=== PATIENT | female | born 1935 ===

== ENCOUNTER 2018-03-25 18:19 | Inpatient (IN) ==
[2018-03-25] MEDS ORDERED: PIPERACILLIN/TAZOBACTAM 3,375 MG in SODIUM CHLORIDE 0.9% 100 ML IV STA ×2 (18:55→19:32)
[2018-03-25] MEDS ORDERED: VANCOMYCIN INJ 750 MG in SODIUM CHLORIDE 0.9% 250 ML IV STA (18:55)
[2018-03-25 19:16] LABS: Basophils % 0.3 % (0.0-0.8); Eosinophils # 0.1 10*3/uL (0.0-0.87); Hematocrit 26.7 VOL% (35.7-47.0); Hemoglobin 8.7 GM/DL (12.0-16.0); Immature Granulocytes % 0.6 %; Immature Granulocytes Absolute 0.05 #; Lymphocytes # 0.7 10*3/uL (1.4-4.0); Lymphocytes % 8.2 % (21.3-54.2); Mean Corpuscular HGB Conc 32.6 GM/DL (32-36); Mean Corpuscular Hemoglobin 32 PG (27-34); Mean Corpuscular Volume 97.4 FL (87-102); Mean Platelet Volume 9.7 FL (9.6-12.0); Monocytes # 0.7 10*3/uL (0.11-0.8); Neutrophils # 7.4 10*3/uL (1.4-7.4); Neutrophils % 81.9 % (38.7-73.9); Platelet Count 122 T/CUMM (130-400); Red Blood Count 2.74 MC/CUMM (3.8-5.5); Red Cell Distribution Width 16.5 % (9.3-17.3)
[2018-03-25 19:20] LABS: INR 1.2; PT Patient Result 12.1 SECS
[2018-03-25 19:27] LABS: Albumin 3.1 G/DL (3.4-5.0); Bilirubin,Total 0.5 MG/DL (0.2-1.0); Calcium 8.1 MG/DL (8.5-10.1); Osmolality,Calculated 280.5 MOS/KG (273-304); Total Protein 6.8 G/DL (6.4-8.3)
[2018-03-25 19:29] LABS: Lactic Acid 0.7 MMOL/L (0.4-2.0)
[2018-03-25 20:21] LABS: ABG PCO2 48.6 MM HG (35-48); ABG PH 7.452 (7.35-7.45); ABG PO2 53.5 MM HG (80-95); Allen Test Positive
[2018-03-25 20:22] LABS: ABG Base Excess 8.8 MMOL/L (-2.5-2.5); ABG HCO3 32.4 MMOL/L (20-26); ABG Oxygen Saturation 85.3 % (95-100); ABG TCO2 31.4 MMOL/L (23-27)
[2018-03-25 21:43] LABS: Apearance,Urine Slightly Hazy (Clear); Bacteria,Urine Occasional /HPF (Few); Bilirubin,Urine Negative (Negative); Blood, Urine Negative (Negative); Glucose,Urine (UA) 150 mg/dL (Negative); Ketones,Urine Negative (Negative); Nitrite,Urine Negative (Negative); Protein,Urine >=500 MG/DL; RBC,Urine 3 /HPF (0-4); Squamous Epithelial Cell,Urine Occasional /HPF (0-10); Urine Color Yellow (Yellow); Urine Specific Gravity 1.013 (1.001-1.035); Urine Urobilinogen < 2.0 EU/DL (0.2-1.0); WBC,Urine 102 /HPF (0-6)
[2018-03-25] MEDS ORDERED: FUROSEMIDE 40 MG/4 ML VIAL IV ONE (23:30)
[2018-03-25] MEDS ORDERED: PROMETHAZINE 25 MG/1 ML VIAL IM PRN (23:35)
[2018-03-25] MEDS ORDERED: ALUMINUM/MAGNES/SIMETH MAX STR 30 ML UDCUP PO PRN (23:35)
[2018-03-25] MEDS ORDERED: ONDANSETRON 4 MG/2 ML VIAL IV PRN (23:35)
[2018-03-25] MEDS ORDERED: ACETAMINOPHEN 325 MG TABLET PO PRN (23:35)
[2018-03-25] MEDS ORDERED: DEXTROSE 50% 25 GM/50 ML VIAL IV PRN (23:35)
[2018-03-25] MEDS ORDERED: GLUCAGON 1 MG VIAL IM PRN (23:35)
[2018-03-25] MEDS: INSULIN REGULAR 100 UNIT/ML SUBCUT SCH (23:58)
[2018-03-26] MEDS: GABAPENTIN 100 MG CAPSULE PO SCH ×3 (00:01→22:19)
[2018-03-26 05:00] LABS: ABG Base Excess 7.5 MMOL/L (-2.5-2.5); ABG HCO3 31.3 MMOL/L (20-26); ABG Oxygen Saturation 94.7 % (95-100); ABG PCO2 46.1 MM HG (35-48); ABG PH 7.455 (7.35-7.45); ABG PO2 93.9 MM HG (80-95); ABG TCO2 29.8 MMOL/L (23-27); Allen Test Positive
[2018-03-26] MEDS: INSULIN REGULAR 100 UNIT/ML SUBCUT SCH ×3 (05:37→18:45)
[2018-03-26] MEDS ORDERED: LEVOFLOXACIN INJ 750 MG in PREMIX 1 EACH IV ONE (08:00)
[2018-03-26 08:19] LABS: Risk Ratio 1.98; VLDL CHOLESTEROL 13.6 MG/DL
[2018-03-26] MEDS: DOCUSATE SODIUM 100 MG CAPSULE PO SCH ×2 (08:58→22:19)
[2018-03-26] MEDS: CALCIUM (CARBONATE) 500 MG TABLET PO SCH ×3 (08:58→17:50)
[2018-03-26] MEDS: PANTOPRAZOLE 40 MG TABLET PO SCH (08:58)
[2018-03-26] MEDS: CARVEDILOL 12.5 MG TABLET PO SCH ×2 (08:58→22:20)
[2018-03-26] MEDS ORDERED: ERGOCALCIFEROL 50,000 UNIT CAPSULE PO SCH (09:00)
[2018-03-26] MEDS ORDERED: FUROSEMIDE 40 MG/4 ML VIAL IV SCH (09:00)
[2018-03-26] MEDS ORDERED: ENOXAPARIN 30 MG/0.3 ML SYRINGE SUBCUT SCH (09:00)
[2018-03-26] MEDS ORDERED: POTASSIUM CHLORIDE 20 MEQ TABLET PO ONE (13:53)
[2018-03-26] MEDS ORDERED: SIMVASTATIN 20 MG TABLET PO SCH (21:00)
[2018-03-27 05:54] LABS: Calcium 7.8 MG/DL (8.5-10.1); Osmolality,Calculated 283.1 MOS/KG (273-304); Potassium 4.5 MMOL/L (3.5-5.1)
[2018-03-27] MEDS: INSULIN REGULAR 100 UNIT/ML SUBCUT SCH ×2 (06:30→13:35)
[2018-03-27] MEDS: CARVEDILOL 12.5 MG TABLET PO SCH ×2 (07:43→10:44)
[2018-03-27] MEDS: PANTOPRAZOLE 40 MG TABLET PO SCH ×2 (07:43→10:45)
[2018-03-27] MEDS: CALCIUM (CARBONATE) 500 MG TABLET PO SCH ×2 (07:43→13:12)
[2018-03-27] MEDS: GABAPENTIN 100 MG CAPSULE PO SCH ×2 (07:43→10:44)
[2018-03-27] MEDS: DOCUSATE SODIUM 100 MG CAPSULE PO SCH ×2 (07:44→10:44)
[2018-03-27 13:14] VITALS: BP 115/45
[2018-03-28] MEDS ORDERED: LEVOFLOXACIN INJ 500 MG in PREMIX 1 EACH IV SCH (08:00)
[2018-03-29] MEDS ORDERED: cloNIDine 0.1 MG/24 HR PATCH TRANSDERM SCH (09:00)
== END 2018-03-27 14:32 | DRG 640 ==
LOC: EDBD → EDUNIT# → N.ED 18:19 → N.EDINP 22:28 → N.5E 23:33
PROVIDERS: ADMIT Family Medicine; ATTEND Family Medicine

== ENCOUNTER 2019-09-07 16:10 | Inpatient (IN) ==
[2019-09-07 17:08] LABS: Basophils % 0.2 % (0.0-0.8); Eosinophils % 0.1 % (0.00-10.9); Hematocrit 30.4 VOL% (35.7-47.0); Immature Granulocytes % 0.6 %; Immature Granulocytes Absolute 0.07 #; Lymphocytes # 0.5 10*3/uL (1.4-4.0); Lymphocytes % 4.4 % (21.3-54.2); Mean Corpuscular HGB Conc 32.9 GM/DL (32-36); Mean Corpuscular Volume 101.7 FL (87-102); Mean Platelet Volume 12.8 FL (9.6-12.0); Monocytes % 4.2 % (1.7-12.7); Neutrophils % 90.5 % (38.7-73.9); Platelet Count 58 T/CUMM (130-400); Red Blood Count 2.99 MC/CUMM (3.8-5.5); Red Cell Distribution Width 14.9 % (9.3-17.3); White Blood Count 11.5 T/CUMM (4-12)
[2019-09-07 17:31] LABS: Albumin 3.2 G/DL (3.4-5.0); Bilirubin,Total 0.7 MG/DL (0.2-1.0); Calcium 8.2 MG/DL (8.5-10.1); Osmolality,Calculated 282.3 MOS/KG (273-304); Total Protein 7.8 G/DL (6.4-8.3)
[2019-09-07 17:43] LABS: Hypochromasia 2+
[2019-09-07 17:44] LABS: Microcytosis 1+; Platelet Estimate Decreased; Polychromasia Few
[2019-09-07] MEDS ORDERED: ONDANSETRON 4 MG/2 ML VIAL IV PRN (19:06)
[2019-09-07] MEDS ORDERED: VANCOMYCIN INJ 500 MG in SODIUM CHLORIDE 0.9% 100 ML IV PRN (19:37)
[2019-09-07] MEDS ORDERED: NITROGLYCERIN SL 0.4 MG TABLET SL PRN (19:39)
[2019-09-07] MEDS: PIPERACILLIN/TAZOBACTAM 3,375 MG in SODIUM CHLORIDE 0.9% 100 ML IV SCH (21:57)
[2019-09-07] MEDS: DICYCLOMINE 10 MG CAPSULE PO SCH (22:01)
[2019-09-07] MEDS: DOCUSATE/SENNA 50-8.6 MG TABLET PO SCH (22:01)
[2019-09-07] MEDS: carvediloL 12.5 MG TABLET PO SCH (22:01)
[2019-09-07] MEDS: HEPARIN 5,000 UNIT/1 ML VIAL SUBCUT SCH (22:02)
[2019-09-08] MEDS ORDERED: VANCOMYCIN INJ 1,000 MG in SODIUM CHLORIDE 0.9% 250 ML IV ONE (01:00)
[2019-09-08] MEDS: LEVOFLOXACIN INJ 500 MG in PREMIX 1 EACH IV SCH (01:37)
[2019-09-08] MEDS: HEPARIN 5,000 UNIT/1 ML VIAL SUBCUT SCH ×3 (05:24→21:36)
[2019-09-08 05:31] LABS: Basophils % 0.2 % (0.0-0.8); Eosinophils % 0.3 % (0.00-10.9); Hematocrit 28.9 VOL% (35.7-47.0); Hemoglobin 9.5 GM/DL (12.0-16.0); Immature Granulocytes % 0.5 %; Immature Granulocytes Absolute 0.04 #; Lymphocytes # 0.8 10*3/uL (1.4-4.0); Mean Corpuscular HGB Conc 32.9 GM/DL (32-36); Mean Corpuscular Volume 102.8 FL (87-102); Mean Platelet Volume 12.5 FL (9.6-12.0); Monocytes % 4.4 % (1.7-12.7); Neutrophils % 85.6 % (38.7-73.9); Platelet Count 47 T/CUMM (130-400); Red Blood Count 2.81 MC/CUMM (3.8-5.5); Red Cell Distribution Width 14.8 % (9.3-17.3); White Blood Count 8.8 T/CUMM (4-12)
[2019-09-08 06:02] LABS: Calcium 8.3 MG/DL (8.5-10.1); Osmolality,Calculated 275.8 MOS/KG (273-304)
[2019-09-08 06:03] LABS: Hypochromasia 1+; Ovalocytes Slight
[2019-09-08 06:04] LABS: Microcytosis Slight; Platelet Estimate Decreased
[2019-09-08] MEDS: PIPERACILLIN/TAZOBACTAM 3,375 MG in SODIUM CHLORIDE 0.9% 100 ML IV SCH ×2 (09:49→23:23)
[2019-09-08] MEDS: PANTOPRAZOLE 40 MG TABLET PO SCH (09:50)
[2019-09-08] MEDS: carvediloL 12.5 MG TABLET PO SCH ×2 (09:50→21:36)
[2019-09-08] MEDS: DICYCLOMINE 10 MG CAPSULE PO SCH ×3 (09:50→21:36)
[2019-09-08] MEDS: DOCUSATE/SENNA 50-8.6 MG TABLET PO SCH ×2 (09:50→21:36)
[2019-09-09 05:25] LABS: Basophils % 0.4 % (0.0-0.8); Eosinophils # 0.1 10*3/uL (0.0-0.87); Eosinophils % 0.9 % (0.00-10.9); Hematocrit 27.4 VOL% (35.7-47.0); Hemoglobin 8.8 GM/DL (12.0-16.0); Immature Granulocytes % 0.7 %; Immature Granulocytes Absolute 0.05 #; Lymphocytes # 0.8 10*3/uL (1.4-4.0); Lymphocytes % 11.2 % (21.3-54.2); Mean Corpuscular HGB Conc 32.1 GM/DL (32-36); Mean Platelet Volume 11.8 FL (9.6-12.0); Monocytes % 6.8 % (1.7-12.7); Red Blood Count 2.66 MC/CUMM (3.8-5.5); Red Cell Distribution Width 14.8 % (9.3-17.3)
[2019-09-09 05:31] LABS: Platelet Count 46 T/CUMM (130-400)
[2019-09-09] MEDS: HEPARIN 5,000 UNIT/1 ML VIAL SUBCUT SCH ×3 (05:42→22:41)
[2019-09-09 05:49] LABS: Hypochromasia 1+
[2019-09-09 05:50] LABS: Microcytosis 1+; Ovalocytes Slight
[2019-09-09 05:51] LABS: Platelet Estimate Decreased
[2019-09-09 05:52] LABS: Calcium 8.1 MG/DL (8.5-10.1); Osmolality,Calculated 287.4 MOS/KG (273-304)
[2019-09-09] MEDS: PANTOPRAZOLE 40 MG TABLET PO SCH (09:05)
[2019-09-09] MEDS: carvediloL 12.5 MG TABLET PO SCH ×2 (09:05→20:11)
[2019-09-09] MEDS: DICYCLOMINE 10 MG CAPSULE PO SCH ×3 (09:05→20:10)
[2019-09-09] MEDS: DOCUSATE/SENNA 50-8.6 MG TABLET PO SCH ×2 (09:05→20:10)
[2019-09-09] MEDS: ALBUTEROL/IPRATROPIUM 3 ML NEB RESP TX SCH ×2 (13:30→19:58)
[2019-09-09] MEDS: PIPERACILLIN/TAZOBACTAM 3,375 MG in SODIUM CHLORIDE 0.9% 100 ML IV SCH ×2 (13:59→22:37)
[2019-09-09] MEDS ORDERED: VANCOMYCIN INJ 500 MG in SODIUM CHLORIDE 0.9% 100 ML IV ONE (17:00)
[2019-09-09 17:50] LABS: Glucose,Pleural Fluid 115 MG/DL; LDH,Body Fluid 82 U/L; Total Protein,Body Fluid 3.3 G/DL
[2019-09-09 18:29] LABS: Lymphocytes,Pleural Fluid 35 %; Monocytes,Pleural Fluid 2 %; Neutrophils,Pleural Fluid 63 %; RBC,Pleural Fluid 13646 T/CUMM
[2019-09-10] MEDS: ALBUTEROL/IPRATROPIUM 3 ML NEB RESP TX SCH ×4 (00:38→20:14)
[2019-09-10] MEDS: LEVOFLOXACIN INJ 500 MG in PREMIX 1 EACH IV SCH (03:30)
[2019-09-10 06:10] LABS: Basophils % 0.5 % (0.0-0.8); Eosinophils % 0.6 % (0.00-10.9); Hematocrit 28.2 VOL% (35.7-47.0); Hemoglobin 8.9 GM/DL (12.0-16.0); Immature Granulocytes % 0.8 %; Immature Granulocytes Absolute 0.05 #; Lymphocytes # 0.6 10*3/uL (1.4-4.0); Lymphocytes % 9.5 % (21.3-54.2); Mean Corpuscular HGB Conc 31.6 GM/DL (32-36); Mean Corpuscular Volume 104.4 FL (87-102); Mean Platelet Volume 12.2 FL (9.6-12.0); Monocytes % 7.3 % (1.7-12.7); Neutrophils % 81.3 % (38.7-73.9); Red Cell Distribution Width 14.6 % (9.3-17.3); White Blood Count 6.4 T/CUMM (4-12)
[2019-09-10 06:12] LABS: Platelet Count 56 T/CUMM (130-400)
[2019-09-10] MEDS: HEPARIN 5,000 UNIT/1 ML VIAL SUBCUT SCH ×3 (06:28→21:20)
[2019-09-10 06:31] LABS: Calcium 8.1 MG/DL (8.5-10.1); Osmolality,Calculated 278.8 MOS/KG (273-304)
[2019-09-10 06:33] LABS: Platelet Estimate Decreased; Polychromasia Few
[2019-09-10] MEDS: carvediloL 12.5 MG TABLET PO SCH ×2 (09:51→21:20)
[2019-09-10] MEDS: PANTOPRAZOLE 40 MG TABLET PO SCH (09:51)
[2019-09-10] MEDS: DOCUSATE/SENNA 50-8.6 MG TABLET PO SCH ×2 (09:51→21:20)
[2019-09-10] MEDS: DICYCLOMINE 10 MG CAPSULE PO SCH ×3 (09:51→21:20)
[2019-09-10] MEDS: PIPERACILLIN/TAZOBACTAM 3,375 MG in SODIUM CHLORIDE 0.9% 100 ML IV SCH ×2 (11:25→23:52)
[2019-09-11] MEDS: ALBUTEROL/IPRATROPIUM 3 ML NEB RESP TX SCH ×4 (00:42→19:55)
[2019-09-11 05:13] LABS: Basophils % 0.4 % (0.0-0.8); Eosinophils # 0.1 10*3/uL (0.0-0.87); Eosinophils % 1.8 % (0.00-10.9); Hematocrit 27.4 VOL% (35.7-47.0); Hemoglobin 8.9 GM/DL (12.0-16.0); Immature Granulocytes Absolute 0.05 #; Lymphocytes # 0.9 10*3/uL (1.4-4.0); Lymphocytes % 17.4 % (21.3-54.2); Mean Corpuscular HGB Conc 32.5 GM/DL (32-36); Mean Corpuscular Volume 101.9 FL (87-102); Mean Platelet Volume 11.2 FL (9.6-12.0); Monocytes % 10.2 % (1.7-12.7); Neutrophils % 69.2 % (38.7-73.9); Red Blood Count 2.69 MC/CUMM (3.8-5.5); Red Cell Distribution Width 14.6 % (9.3-17.3); White Blood Count 5.1 T/CUMM (4-12)
[2019-09-11 05:14] LABS: Platelet Count 72 T/CUMM (130-400)
[2019-09-11 05:35] LABS: Calcium 8.3 MG/DL (8.5-10.1); Osmolality,Calculated 282.7 MOS/KG (273-304)
[2019-09-11 05:37] LABS: Platelet Estimate Decreased; Polychromasia Few
[2019-09-11] MEDS: HEPARIN 5,000 UNIT/1 ML VIAL SUBCUT SCH ×3 (05:43→21:06)
[2019-09-11] MEDS: DICYCLOMINE 10 MG CAPSULE PO SCH ×3 (08:37→21:10)
[2019-09-11] MEDS: carvediloL 12.5 MG TABLET PO SCH ×2 (08:37→21:10)
[2019-09-11] MEDS: PANTOPRAZOLE 40 MG TABLET PO SCH (08:38)
[2019-09-11] MEDS: DOCUSATE/SENNA 50-8.6 MG TABLET PO SCH ×2 (08:38→21:10)
[2019-09-11] MEDS: PIPERACILLIN/TAZOBACTAM 3,375 MG in SODIUM CHLORIDE 0.9% 100 ML IV SCH ×2 (12:32→22:58)
[2019-09-12] MEDS: ALBUTEROL/IPRATROPIUM 3 ML NEB RESP TX SCH ×4 (00:39→19:58)
[2019-09-12] MEDS: LEVOFLOXACIN INJ 500 MG in PREMIX 1 EACH IV SCH (03:20)
[2019-09-12 05:27] LABS: Basophils % 0.4 % (0.0-0.8); Eosinophils % 2.3 % (0.00-10.9); Hematocrit 26.7 VOL% (35.7-47.0); Hemoglobin 8.7 GM/DL (12.0-16.0); Immature Granulocytes % 1.1 %; Lymphocytes % 14.8 % (21.3-54.2); Mean Corpuscular HGB Conc 32.6 GM/DL (32-36); Mean Corpuscular Volume 101.9 FL (87-102); Mean Platelet Volume 11.4 FL (9.6-12.0); Monocytes % 11.2 % (1.7-12.7); Neutrophils % 70.2 % (38.7-73.9); Red Blood Count 2.62 MC/CUMM (3.8-5.5); Red Cell Distribution Width 14.6 % (9.3-17.3); White Blood Count 4.7 T/CUMM (4-12)
[2019-09-12 05:28] LABS: Eosinophils # 0.1 10*3/uL (0.0-0.87); Immature Granulocytes Absolute 0.05 #; Lymphocytes # 0.7 10*3/uL (1.4-4.0); Platelet Count 73 T/CUMM (130-400)
[2019-09-12 05:44] LABS: Osmolality,Calculated 288.8 MOS/KG (273-304)
[2019-09-12 05:49] LABS: Hypochromasia 1+; Platelet Estimate Decreased
[2019-09-12] MEDS: HEPARIN 5,000 UNIT/1 ML VIAL SUBCUT SCH ×3 (06:12→22:04)
[2019-09-12] MEDS: DOCUSATE/SENNA 50-8.6 MG TABLET PO SCH ×2 (08:48→22:03)
[2019-09-12] MEDS: DICYCLOMINE 10 MG CAPSULE PO SCH ×3 (08:48→22:03)
[2019-09-12] MEDS: carvediloL 12.5 MG TABLET PO SCH ×2 (08:48→22:03)
[2019-09-12] MEDS: PANTOPRAZOLE 40 MG TABLET PO SCH (08:48)
[2019-09-12] MEDS: PIPERACILLIN/TAZOBACTAM 3,375 MG in SODIUM CHLORIDE 0.9% 100 ML IV SCH ×2 (11:34→22:04)
[2019-09-13] MEDS: ALBUTEROL/IPRATROPIUM 3 ML NEB RESP TX SCH ×3 (00:13→13:32)
[2019-09-13] MEDS: HEPARIN 5,000 UNIT/1 ML VIAL SUBCUT SCH ×2 (06:28→14:43)
[2019-09-13] MEDS: PANTOPRAZOLE 40 MG TABLET PO SCH ×2 (10:16→11:11)
[2019-09-13] MEDS: DOCUSATE/SENNA 50-8.6 MG TABLET PO SCH ×2 (10:16→11:11)
[2019-09-13] MEDS: carvediloL 12.5 MG TABLET PO SCH ×2 (10:16→11:10)
[2019-09-13] MEDS: DICYCLOMINE 10 MG CAPSULE PO SCH ×3 (10:16→15:51)
[2019-09-13] MEDS: PIPERACILLIN/TAZOBACTAM 3,375 MG in SODIUM CHLORIDE 0.9% 100 ML IV SCH (11:00)
[2019-09-13 14:11] VITALS: BP 203/90
== END 2019-09-13 15:53 | DRG 291 ==
LOC: EDUNIT# → EDBD → N.ED 16:10 → N.EDINP 17:13 → SUATTDRO 17:13 → N.5E 18:28
PROVIDERS: ADMIT Hospitalist; ATTEND Internal Medicine

== ENCOUNTER 2019-12-21 15:42 | Inpatient (IN) ==
[2019-12-21] MEDS ORDERED: EPINEPHrine 1 MG/10 ML SYRINGE ONE (15:49)
[2019-12-21 16:30] LABS: Basophils % 0.4 % (0.0-0.8); Eosinophils % 0.4 % (0.00-10.9); Hematocrit 30.8 VOL% (35.7-47.0); Hemoglobin 9.8 GM/DL (12.0-16.0); Immature Granulocytes % 0.4 %; Immature Granulocytes Absolute 0.02 #; Lymphocytes # 0.8 10*3/uL (1.4-4.0); Lymphocytes % 15.5 % (21.3-54.2); Mean Corpuscular HGB Conc 31.8 GM/DL (32-36); Mean Platelet Volume 11.5 FL (9.6-12.0); Monocytes % 7.8 % (1.7-12.7); Neutrophils % 75.5 % (38.7-73.9); Red Blood Count 3.11 MC/CUMM (3.8-5.5); Red Cell Distribution Width 14.7 % (9.3-17.3); White Blood Count 5.4 T/CUMM (4-12)
[2019-12-21 16:31] LABS: Platelet Count 74 T/CUMM (130-400)
[2019-12-21] MEDS ORDERED: EPINEPHrine 1 MG/10 ML SYRINGE IV STA (16:40)
[2019-12-21 16:49] LABS: Elliptocytes Few
[2019-12-21 16:50] LABS: Anisocytosis 1+; Platelet Estimate Decreased
[2019-12-21 16:54] LABS: Albumin 3.3 G/DL (3.4-5.0); Bilirubin,Total 0.5 MG/DL (0.2-1.0); Calcium 7.9 MG/DL (8.5-10.1); Osmolality,Calculated 292.7 MOS/KG (273-304); Total Protein 7.6 G/DL (6.4-8.3)
[2019-12-21] MEDS ORDERED: LIDOCAINE 1% 20 ML VIAL ONE (17:07)
[2019-12-21] MEDS ORDERED: ALBUTEROL 2.5 MG/3 ML NEB RESP TX PRN (18:24)
[2019-12-21] MEDS ORDERED: GLUCAGON 1 MG VIAL IM PRN ×2 (18:24→18:43)
[2019-12-21] MEDS ORDERED: DEXTROSE 50% 25 GM/50 ML VIAL IV PRN (18:24)
[2019-12-21] MEDS ORDERED: ONDANSETRON 4 MG/2 ML VIAL IV PRN (18:24)
[2019-12-21] MEDS: PANTOPRAZOLE 40 MG VIAL IV SCH (19:00)
[2019-12-21 19:11] LABS: Troponin I < 0.015 NG/ML (0.00-0.045)
[2019-12-21] MEDS ORDERED: SODIUM CHLORIDE 0.9% 150 ML IV SCH (21:00)
[2019-12-21] MEDS ORDERED: SODIUM BICARB INJ 50 MEQ, DEXTROSE 50% 25 GM, INSULIN REGULAR 10 UNIT in SODIUM CHLORID... IV ONE (22:00)
[2019-12-21] MEDS: INSULIN REGULAR 100 UNIT/ML SUBCUT SCH (23:58)
[2019-12-22] MEDS: DEXTROSE 10% 250 ML BAG IV PRN ×2 (02:34→05:54)
[2019-12-22 04:55] LABS: Basophils % 0.2 % (0.0-0.8); Eosinophils % 0.2 % (0.00-10.9); Hematocrit 27.8 VOL% (35.7-47.0); Hemoglobin 8.8 GM/DL (12.0-16.0); Immature Granulocytes % 0.5 %; Immature Granulocytes Absolute 0.03 #; Lymphocytes # 0.4 10*3/uL (1.4-4.0); Lymphocytes % 5.9 % (21.3-54.2); Mean Corpuscular HGB Conc 31.7 GM/DL (32-36); Mean Corpuscular Volume 99.3 FL (87-102); Mean Platelet Volume 11.7 FL (9.6-12.0); Monocytes % 8.5 % (1.7-12.7); Neutrophils % 84.7 % (38.7-73.9); Red Cell Distribution Width 14.6 % (9.3-17.3); White Blood Count 6.1 T/CUMM (4-12)
[2019-12-22 04:59] LABS: Platelet Count 62 T/CUMM (130-400)
[2019-12-22 05:22] LABS: Hypochromasia 1+; Ovalocytes Slight; Platelet Estimate Decreased
[2019-12-22 05:23] LABS: Albumin 3.4 G/DL (3.4-5.0); Bilirubin,Total 0.5 MG/DL (0.2-1.0); Calcium 7.6 MG/DL (8.5-10.1); Osmolality,Calculated 292.4 MOS/KG (273-304); Total Protein 7.2 G/DL (6.4-8.3)
[2019-12-22 05:27] LABS: Troponin I 0.017 NG/ML (0.00-0.045)
[2019-12-22] MEDS: INSULIN REGULAR 100 UNIT/ML SUBCUT SCH ×4 (07:49→20:46)
[2019-12-22 10:34] LABS: Troponin I 0.016 NG/ML (0.00-0.045)
[2019-12-22] MEDS: hydrALAZINE 20 MG/1 ML VIAL IV PRN ×2 (15:21→20:55)
[2019-12-22] MEDS ORDERED: amLODIPine 5 MG TABLET PO ONE (17:24)
[2019-12-22] MEDS: SEVELAMER CARBONATE 800 MG TABLET PO SCH (17:52)
[2019-12-22] MEDS: PANTOPRAZOLE 40 MG VIAL IV SCH (17:52)
[2019-12-22] MEDS: SIMVASTATIN 20 MG TABLET PO SCH (20:46)
[2019-12-22] MEDS: NIFEdipine 10 MG CAPSULE PO PRN (21:55)
[2019-12-23] MEDS: NIFEdipine 10 MG CAPSULE PO PRN (07:10)
[2019-12-23] MEDS ORDERED: MEGESTROL 400 MG/10 ML UDCUP PO SCH (08:00)
[2019-12-23] MEDS: INSULIN REGULAR 100 UNIT/ML SUBCUT SCH ×4 (08:19→20:12)
[2019-12-23] MEDS: DOCUSATE/SENNA 50-8.6 MG TABLET PO SCH (09:12)
[2019-12-23] MEDS: SEVELAMER CARBONATE 800 MG TABLET PO SCH ×3 (09:12→17:08)
[2019-12-23] MEDS: HEPARIN 5,000 UNIT/1 ML VIAL SUBCUT SCH ×2 (11:30→17:08)
[2019-12-23] MEDS ORDERED: hydrALAZINE 20 MG/1 ML VIAL IV PRN (16:08)
[2019-12-23] MEDS: PANTOPRAZOLE 40 MG VIAL IV SCH (17:33)
[2019-12-23] MEDS: SIMVASTATIN 20 MG TABLET PO SCH (20:59)
[2019-12-24] MEDS: HEPARIN 5,000 UNIT/1 ML VIAL SUBCUT SCH ×2 (02:25→10:16)
[2019-12-24 05:03] LABS: Basophils % 0.3 % (0.0-0.8); Eosinophils # 0.1 10*3/uL (0.0-0.87); Eosinophils % 0.8 % (0.00-10.9); Hematocrit 29.5 VOL% (35.7-47.0); Hemoglobin 9.4 GM/DL (12.0-16.0); Immature Granulocytes % 0.3 %; Immature Granulocytes Absolute 0.02 #; Lymphocytes # 0.6 10*3/uL (1.4-4.0); Lymphocytes % 9.1 % (21.3-54.2); Mean Corpuscular HGB Conc 31.9 GM/DL (32-36); Mean Corpuscular Volume 98.7 FL (87-102); Mean Platelet Volume 11.3 FL (9.6-12.0); Monocytes % 7.4 % (1.7-12.7); Neutrophils % 82.1 % (38.7-73.9); Platelet Count 75 T/CUMM (130-400); Red Blood Count 2.99 MC/CUMM (3.8-5.5); Red Cell Distribution Width 14.8 % (9.3-17.3); White Blood Count 6.6 T/CUMM (4-12)
[2019-12-24 05:33] LABS: Calcium 7.8 MG/DL (8.5-10.1); Osmolality,Calculated 270.4 MOS/KG (273-304)
[2019-12-24] MEDS: DOCUSATE/SENNA 50-8.6 MG TABLET PO SCH (09:12)
[2019-12-24] MEDS: INSULIN REGULAR 100 UNIT/ML SUBCUT SCH ×2 (09:12→12:28)
[2019-12-24] MEDS: SEVELAMER CARBONATE 800 MG TABLET PO SCH ×2 (09:13→12:29)
[2019-12-24 12:22] VITALS: BP 138/70
== END 2019-12-24 15:50 | disposition home or self-care (01) | DRG 308 ==
LOC: EDBD → EDUNIT# → EDSEX → N.ED 15:42 → N.CC 16:45 → SUATTDRO 16:59 → N.EDINP 16:59 → N.CC 17:19 → N.TELES 12-23 16:03
PROVIDERS: ADMIT Emergency Medicine; ATTEND Internal Medicine

== ENCOUNTER 2020-04-06 12:06 | Inpatient (IN) ==
[2020-04-06] MEDS ORDERED: NON-FORMULARY MEDICATION (Nitroglycerin [Nitroglycerin] 0.4 MG) SL PRN (13:01)
[2020-04-06] MEDS ORDERED: ACETAMINOPHEN 325 MG TABLET PO PRN ×2 (13:01→13:03)
[2020-04-06] MEDS ORDERED: ONDANSETRON 4 MG/2 ML VIAL IV PRN (13:03)
[2020-04-06] MEDS ORDERED: DEXTROSE 50% 25 GM/50 ML VIAL IV PRN (13:03)
[2020-04-06] MEDS ORDERED: LACTULOSE 20 GM/30 ML UDCUP PO PRN (13:03)
[2020-04-06] MEDS ORDERED: ZALEPLON 5 MG CAPSULE PO PRN (13:03)
[2020-04-06] MEDS ORDERED: BISACODYL 5 MG TABLET PO PRN (13:03)
[2020-04-06] MEDS ORDERED: diphenhydrAMINE CAP 25 MG CAPSULE PO PRN (13:03)
[2020-04-06] MEDS ORDERED: ALUMINUM/MAGNES/SIMETH MAX STR 30 ML UDCUP PO PRN (13:03)
[2020-04-06] MEDS ORDERED: GLUCAGON 1 MG VIAL IM PRN (13:03)
[2020-04-06] MEDS ORDERED: hydrALAZINE 20 MG/1 ML VIAL IV PRN (13:03)
[2020-04-06] MEDS ORDERED: guaiFENesin/DM ER 600-30 MG TABLET PO PRN (13:03)
[2020-04-06] MEDS ORDERED: DOCUSATE SODIUM 100 MG CAPSULE PO PRN (13:03)
[2020-04-06] MEDS ORDERED: SIMETHICONE CHEW 125 MG TABLET PO PRN (13:03)
[2020-04-06] MEDS ORDERED: VANCOMYCIN INJ 500 MG in SODIUM CHLORIDE 0.9% 250 ML IV PRN (17:00)
[2020-04-06] MEDS ORDERED: VANCOMYCIN INJ 1,250 MG in SODIUM CHLORIDE 0.9% 250 ML IV ONE (18:00)
[2020-04-06] MEDS: SEVELAMER CARBONATE 800 MG TABLET PO SCH (18:43)
[2020-04-06] MEDS: DICYCLOMINE 10 MG CAPSULE PO SCH ×2 (18:43→20:40)
[2020-04-06] MEDS: ALBUTEROL/IPRATROPIUM 3 ML NEB RESP TX SCH (20:17)
[2020-04-06] MEDS: cefTRIAXone 1,000 MG in SYRINGE 1 EACH IV SCH (20:40)
[2020-04-06] MEDS: GABAPENTIN 100 MG CAPSULE PO SCH (20:40)
[2020-04-06] MEDS: SIMVASTATIN 20 MG TABLET PO SCH (20:41)
[2020-04-06] MEDS: FERROUS SULFATE 325 MG TABLET PO SCH (20:41)
[2020-04-06] MEDS ORDERED: LOPERAMIDE 2 MG CAPSULE PO PRN (21:00)
[2020-04-06] MEDS: AZITHROMYCIN INJ 250 MG in SODIUM CHLORIDE 0.9% 250 ML IV SCH (22:30)
[2020-04-06] MEDS: CARBOXYMETHYLCELLULOSE 1% OPH SOLN BOTH EYES SCH (22:38)
[2020-04-07] MEDS: ALBUTEROL/IPRATROPIUM 3 ML NEB RESP TX SCH ×4 (00:20→19:43)
[2020-04-07 05:23] LABS: Basophils % 0.3 % (0.0-0.8); Eosinophils % 0.3 % (0.00-10.9); Hematocrit 35.2 VOL% (35.7-47.0); Immature Granulocytes % 0.3 %; Immature Granulocytes Absolute 0.02 #; Lymphocytes # 0.6 10*3/uL (1.4-4.0); Lymphocytes % 9.2 % (21.3-54.2); Mean Corpuscular HGB Conc 31.3 GM/DL (32-36); Mean Corpuscular Volume 100.3 FL (87-102); Mean Platelet Volume 10.2 FL (9.6-12.0); Monocytes % 9.5 % (1.7-12.7); Neutrophils % 80.4 % (38.7-73.9); Red Blood Count 3.51 MC/CUMM (3.8-5.5); Red Cell Distribution Width 15.3 % (9.3-17.3); White Blood Count 6.1 T/CUMM (4-12)
[2020-04-07 05:33] LABS: Platelet Count 99 T/CUMM (130-400)
[2020-04-07 05:48] LABS: Anisocytosis 1+; Hypochromasia 1+; Ovalocytes Few; Platelet Estimate Decreased
[2020-04-07 06:06] LABS: Albumin 3.3 G/DL (3.4-5.0); Bilirubin,Total 1.1 MG/DL (0.2-1.0); Calcium 8.5 MG/DL (8.5-10.1); Osmolality,Calculated 270.2 MOS/KG (273-304); Risk Ratio 1.97; Thyroid Stimulating Hormone 63.2 uIU/ml (0.358-3.74); Total Protein 8.2 G/DL (6.4-8.3); VLDL CHOLESTEROL 13.6 MG/DL
[2020-04-07] MEDS: SEVELAMER CARBONATE 800 MG TABLET PO SCH ×3 (09:33→16:59)
[2020-04-07] MEDS: DICYCLOMINE 10 MG CAPSULE PO SCH ×3 (09:42→21:48)
[2020-04-07] MEDS: PANTOPRAZOLE 40 MG TABLET PO SCH (09:42)
[2020-04-07] MEDS ORDERED: BUPIVACAINE MPF 0.25% 30 ML VIAL ONE (13:48)
[2020-04-07] MEDS ORDERED: LIDOCAINE 1%/EPI INJ 20 ML VIAL ONE (13:48)
[2020-04-07] MEDS: GABAPENTIN 100 MG CAPSULE PO SCH ×2 (14:28→21:48)
[2020-04-07] MEDS: CARBOXYMETHYLCELLULOSE 1% OPH SOLN BOTH EYES SCH ×3 (14:29→22:05)
[2020-04-07] MEDS: FERROUS SULFATE 325 MG TABLET PO SCH ×2 (14:30→21:49)
[2020-04-07] MEDS ORDERED: LIDOCAINE 2% 5 ML VIAL ONE (14:45)
[2020-04-07] MEDS ORDERED: SODIUM CHLORIDE 0.9% 250 ML IV ONE (14:45)
[2020-04-07] MEDS ORDERED: propofoL 200 MG/20 ML VIAL IV ONE (14:45)
[2020-04-07] MEDS: MEGESTROL 400 MG/10 ML UDCUP PO SCH (16:59)
[2020-04-07] MEDS: DOCUSATE/SENNA 50-8.6 MG TABLET PO SCH (16:59)
[2020-04-07] MEDS: cefTRIAXone 1,000 MG in SYRINGE 1 EACH IV SCH (21:47)
[2020-04-07] MEDS: SIMVASTATIN 20 MG TABLET PO SCH (21:48)
[2020-04-07] MEDS: DOXAZOSIN 1 MG TABLET PO SCH (21:48)
[2020-04-07] MEDS: AZITHROMYCIN INJ 250 MG in SODIUM CHLORIDE 0.9% 250 ML IV SCH (21:49)
[2020-04-08] MEDS: ALBUTEROL/IPRATROPIUM 3 ML NEB RESP TX SCH ×4 (01:30→19:37)
[2020-04-08 06:01] LABS: Basophils % 0.4 % (0.0-0.8); Eosinophils % 0.6 % (0.00-10.9); Hematocrit 32.1 VOL% (35.7-47.0); Hemoglobin 9.9 GM/DL (12.0-16.0); Immature Granulocytes % 0.4 %; Immature Granulocytes Absolute 0.02 #; Lymphocytes # 0.5 10*3/uL (1.4-4.0); Lymphocytes % 9.6 % (21.3-54.2); Mean Corpuscular HGB Conc 30.8 GM/DL (32-36); Mean Corpuscular Volume 101.3 FL (87-102); Mean Platelet Volume 10.8 FL (9.6-12.0); Monocytes % 9.6 % (1.7-12.7); Neutrophils % 79.4 % (38.7-73.9); Red Blood Count 3.17 MC/CUMM (3.8-5.5); Red Cell Distribution Width 15.5 % (9.3-17.3)
[2020-04-08 06:02] LABS: Platelet Count 91 T/CUMM (130-400)
[2020-04-08 06:19] LABS: Alanine Aminotransferase < 9 U/L (13-56); Albumin 2.9 G/DL (3.4-5.0); Alkaline Phosphatase 107 U/L (45-117); Aspartate Amino Transferase 12 U/L (0-37); Blood Urea Nitrogen 34 MG/DL (7-18); Calcium 7.7 MG/DL (8.5-10.1); Estimated Glom Filtration Rate 8 ML/MIN; Glucose 129 MG/DL (74-106); Total Protein 7.2 G/DL (6.4-8.3)
[2020-04-08 07:02] LABS: Hypochromasia 1+; Macrocytosis Slight
[2020-04-08 07:03] LABS: Platelet Estimate Decreased
[2020-04-08] MEDS: DOCUSATE/SENNA 50-8.6 MG TABLET PO SCH (09:47)
[2020-04-08] MEDS: MEGESTROL 400 MG/10 ML UDCUP PO SCH (09:47)
[2020-04-08] MEDS: CARBOXYMETHYLCELLULOSE 1% OPH SOLN BOTH EYES SCH ×4 (09:48→21:16)
[2020-04-08] MEDS: DICYCLOMINE 10 MG CAPSULE PO SCH ×3 (09:48→21:17)
[2020-04-08] MEDS: GABAPENTIN 100 MG CAPSULE PO SCH ×2 (09:48→21:17)
[2020-04-08] MEDS: FERROUS SULFATE 325 MG TABLET PO SCH ×2 (09:48→21:17)
[2020-04-08] MEDS: SEVELAMER CARBONATE 800 MG TABLET PO SCH ×3 (09:48→16:01)
[2020-04-08] MEDS: PANTOPRAZOLE 40 MG TABLET PO SCH (09:48)
[2020-04-08] MEDS: AZITHROMYCIN INJ 250 MG in SODIUM CHLORIDE 0.9% 250 ML IV SCH (21:16)
[2020-04-08] MEDS: cefTRIAXone 1,000 MG in SYRINGE 1 EACH IV SCH (21:16)
[2020-04-08] MEDS: SIMVASTATIN 20 MG TABLET PO SCH (21:17)
[2020-04-08] MEDS: DOXAZOSIN 1 MG TABLET PO SCH (21:17)
[2020-04-09] MEDS: ALBUTEROL/IPRATROPIUM 3 ML NEB RESP TX SCH ×4 (02:46→19:50)
[2020-04-09 05:22] LABS: Basophils % 0.4 % (0.0-0.8); Eosinophils # 0.1 10*3/uL (0.0-0.87); Eosinophils % 1.2 % (0.00-10.9); Hemoglobin 9.6 GM/DL (12.0-16.0); Immature Granulocytes % 0.4 %; Immature Granulocytes Absolute 0.02 #; Lymphocytes # 0.6 10*3/uL (1.4-4.0); Lymphocytes % 9.6 % (21.3-54.2); Mean Corpuscular Volume 99.3 FL (87-102); Mean Platelet Volume 10.5 FL (9.6-12.0); Monocytes % 8.8 % (1.7-12.7); Neutrophils % 79.6 % (38.7-73.9); Red Blood Count 3.02 MC/CUMM (3.8-5.5); Red Cell Distribution Width 15.6 % (9.3-17.3); White Blood Count 5.7 T/CUMM (4-12)
[2020-04-09 05:26] LABS: INR 1.2; PT Patient Result 12.9 SECS (9.8-11.9)
[2020-04-09 05:29] LABS: Platelet Count 86 T/CUMM (130-400)
[2020-04-09 06:18] LABS: Hypochromasia 1+
[2020-04-09 06:19] LABS: Anisocytosis 1+; Macrocytosis 1+; Ovalocytes Slight; Platelet Estimate Decreased
[2020-04-09 06:28] LABS: Albumin 2.8 G/DL (3.4-5.0); Total Protein 7.1 G/DL (6.4-8.3)
[2020-04-09] MEDS: PANTOPRAZOLE 40 MG TABLET PO SCH ×2 (06:30→10:25)
[2020-04-09] MEDS: LEVOTHYROXINE 25 MCG TABLET PO SCH (06:31)
[2020-04-09 06:33] LABS: Folate 8.7 NG/ML (5.4-24.0)
[2020-04-09 06:40] LABS: % Iron Saturation 22.9 % (18-50); Alanine Aminotransferase < 6 U/L (13-56); Albumin 2.8 G/DL (3.4-5.0); Alkaline Phosphatase 107 U/L (45-117); Aspartate Amino Transferase 14 U/L (0-37); Blood Urea Nitrogen 40 MG/DL (7-18); Calcium 7.4 MG/DL (8.5-10.1); Estimated Glom Filtration Rate 6 ML/MIN; Ferritin 744.6 ng/ml (8-252); Glucose 91 MG/DL (74-106); Osmolality,Calculated 277.2 MOS/KG (273-304)
[2020-04-09 10:05] LABS: Total Protein,Body Fluid 4.5 G/DL
[2020-04-09] MEDS: MEGESTROL 400 MG/10 ML UDCUP PO SCH (10:21)
[2020-04-09] MEDS: SEVELAMER CARBONATE 800 MG TABLET PO SCH ×3 (10:21→17:50)
[2020-04-09] MEDS: DOCUSATE/SENNA 50-8.6 MG TABLET PO SCH (10:21)
[2020-04-09] MEDS: DICYCLOMINE 10 MG CAPSULE PO SCH ×3 (10:22→22:22)
[2020-04-09] MEDS: FERROUS SULFATE 325 MG TABLET PO SCH ×2 (10:22→22:22)
[2020-04-09] MEDS: GABAPENTIN 100 MG CAPSULE PO SCH ×2 (10:22→22:22)
[2020-04-09] MEDS: CARBOXYMETHYLCELLULOSE 1% OPH SOLN BOTH EYES SCH ×4 (10:25→22:22)
[2020-04-09] MEDS ORDERED: CLINDAMYCIN INJ 600 MG in PREMIX 1 EACH IV SCH (16:30)
[2020-04-09 17:36] LABS: RBC,Pleural Fluid < 1 T/CUMM
[2020-04-09 17:40] LABS: Lymphocytes,Pleural Fluid 59 %; Monocytes,Pleural Fluid 24 %; Neutrophils,Pleural Fluid 18 %
[2020-04-09] MEDS: cefTRIAXone 1,000 MG in SYRINGE 1 EACH IV SCH (22:21)
[2020-04-09] MEDS: CLINDAMYCIN INJ 600 MG in PREMIX 1 EACH IV SCH (22:21)
[2020-04-09] MEDS: SIMVASTATIN 20 MG TABLET PO SCH (22:22)
[2020-04-09] MEDS: DOXAZOSIN 1 MG TABLET PO SCH (22:22)
[2020-04-09] MEDS: AZITHROMYCIN INJ 250 MG in SODIUM CHLORIDE 0.9% 250 ML IV SCH (22:51)
[2020-04-10] MEDS: ALBUTEROL/IPRATROPIUM 3 ML NEB RESP TX SCH ×3 (00:10→13:32)
[2020-04-10 05:13] LABS: Basophils % 0.4 % (0.0-0.8); Eosinophils # 0.1 10*3/uL (0.0-0.87); Eosinophils % 0.9 % (0.00-10.9); Hematocrit 30.1 VOL% (35.7-47.0); Hemoglobin 9.6 GM/DL (12.0-16.0); Immature Granulocytes % 0.4 %; Immature Granulocytes Absolute 0.02 #; Lymphocytes # 0.4 10*3/uL (1.4-4.0); Lymphocytes % 6.9 % (21.3-54.2); Mean Corpuscular HGB Conc 31.9 GM/DL (32-36); Mean Platelet Volume 10.6 FL (9.6-12.0); Neutrophils % 82.4 % (38.7-73.9); Red Blood Count 3.01 MC/CUMM (3.8-5.5); Red Cell Distribution Width 15.9 % (9.3-17.3); White Blood Count 5.5 T/CUMM (4-12)
[2020-04-10 05:15] LABS: Platelet Count 80 T/CUMM (130-400)
[2020-04-10 05:30] LABS: Alanine Aminotransferase < 6 U/L (13-56); Albumin 2.7 G/DL (3.4-5.0); Alkaline Phosphatase 94 U/L (45-117); Aspartate Amino Transferase 8 U/L (0-37); Blood Urea Nitrogen 19 MG/DL (7-18); Calcium 7.7 MG/DL (8.5-10.1); Estimated Glom Filtration Rate 10 ML/MIN; Glucose 106 MG/DL (74-106); Osmolality,Calculated 271.1 MOS/KG (273-304)
[2020-04-10 05:33] LABS: Hypochromasia 1+; Macrocytosis Slight; Ovalocytes Slight; Platelet Estimate Decreased
[2020-04-10] MEDS: CLINDAMYCIN INJ 600 MG in PREMIX 1 EACH IV SCH ×2 (05:48→12:31)
[2020-04-10] MEDS: LEVOTHYROXINE 25 MCG TABLET PO SCH (06:29)
[2020-04-10] MEDS: GABAPENTIN 100 MG CAPSULE PO SCH (09:11)
[2020-04-10] MEDS: CARBOXYMETHYLCELLULOSE 1% OPH SOLN BOTH EYES SCH ×3 (09:11→17:11)
[2020-04-10] MEDS: MEGESTROL 400 MG/10 ML UDCUP PO SCH (09:11)
[2020-04-10] MEDS: DICYCLOMINE 10 MG CAPSULE PO SCH ×2 (09:11→16:08)
[2020-04-10] MEDS: PANTOPRAZOLE 40 MG TABLET PO SCH (09:11)
[2020-04-10] MEDS: DOCUSATE/SENNA 50-8.6 MG TABLET PO SCH (09:11)
[2020-04-10] MEDS: SEVELAMER CARBONATE 800 MG TABLET PO SCH ×3 (09:11→17:11)
[2020-04-10] MEDS: FERROUS SULFATE 325 MG TABLET PO SCH (09:12)
[2020-04-10 16:08] VITALS: BP 125/51
== END 2020-04-10 17:44 | DRG 291 ==
LOC: EDUNIT# → EDSEX → EDBD → N.EDINP 12:06 → N.ED 12:06 → N.TELES 14:50 → SUATTDRO 04-07 11:40
PROVIDERS: ADMIT Hospitalist; ATTEND Internal Medicine

== ENCOUNTER 2020-06-04 19:01 | Observation (INO) ==
[2020-06-04] MEDS ORDERED: GLUCAGON 1 MG VIAL IM PRN (21:59)
[2020-06-04] MEDS ORDERED: ONDANSETRON 4 MG/2 ML VIAL IV PRN (21:59)
[2020-06-04] MEDS: ENOXAPARIN 30 MG/0.3 ML SYRINGE SUBCUT SCH (22:50)
[2020-06-05] MEDS: INSULIN LISPRO 100 UNIT/ML SUBCUT SCH ×4 (00:13→17:51)
[2020-06-05] MEDS: DEXTROSE 50% 25 GM/50 ML VIAL IV PRN ×2 (00:14→10:45)
[2020-06-05 07:15] LABS: Basophils # 0.1 10*3/uL (0.0-0.2); Basophils % 0.2 % (0.0-0.8); Eosinophils % 0.1 % (0.00-10.9); Hematocrit 24.7 VOL% (35.7-47.0); Hemoglobin 7.7 GM/DL (12.0-16.0); Immature Granulocytes % 1.7 %; Immature Granulocytes Absolute 0.45 #; Lymphocytes # 0.6 10*3/uL (1.4-4.0); Lymphocytes % 2.4 % (21.3-54.2); Mean Corpuscular HGB Conc 31.2 GM/DL (32-36); Mean Corpuscular Volume 100.4 FL (87-102); Mean Platelet Volume 10.3 FL (9.6-12.0); Neutrophils % 90.6 % (38.7-73.9); Platelet Count 208 T/CUMM (130-400); Red Blood Count 2.46 MC/CUMM (3.8-5.5); Red Cell Distribution Width 14.6 % (9.3-17.3); White Blood Count 26.4 T/CUMM (4-12)
[2020-06-05 07:39] LABS: Band Neutrophils 9 % (0-10); Lymphocytes 1 % (20-55); Segmented Neutrophils 86 % (50-85); Total Cells Counted 100
[2020-06-05 07:40] LABS: Hypochromasia 1+; Macrocytosis Slight; Ovalocytes Slight; Platelet Estimate Normal
[2020-06-05 07:41] LABS: Calcium 8.3 MG/DL (8.5-10.1); Osmolality,Calculated 276.4 MOS/KG (273-304)
[2020-06-05] MEDS ORDERED: cefTRIAXone 1,000 MG in SODIUM CHLORIDE 0.9% 100 ML IV SCH (09:00)
[2020-06-05] MEDS: PIPERACILLIN/TAZOBACTAM 3,375 MG in SODIUM CHLORIDE 0.9% 100 ML IV SCH ×2 (09:20→20:15)
[2020-06-05] MEDS ORDERED: SODIUM CHLORIDE 0.9% 1,000 ML IV SCH (12:00)
[2020-06-05] MEDS: VANCOMYCIN 50 MG/ML 60 ML/BOTTLE PO SCH ×2 (17:13→22:17)
[2020-06-05] MEDS ORDERED: VANCOMYCIN 50 MG/ML 60 ML/BOTTLE NG SCH (18:00)
[2020-06-05] MEDS: AZITHROMYCIN INJ 500 MG in SODIUM CHLORIDE 0.9% 250 ML IV SCH (19:24)
[2020-06-05] MEDS ORDERED: VANCOMYCIN INJ 1,000 MG in SODIUM CHLORIDE 0.9% 250 ML IV ONE (21:00)
[2020-06-05] MEDS: SIMVASTATIN 20 MG TABLET PO SCH (21:16)
[2020-06-05] MEDS: FERROUS SULFATE 325 MG TABLET PO SCH (21:16)
[2020-06-05] MEDS: ENOXAPARIN 30 MG/0.3 ML SYRINGE SUBCUT SCH (22:16)
[2020-06-06] MEDS: INSULIN LISPRO 100 UNIT/ML SUBCUT SCH ×4 (02:57→17:16)
[2020-06-06] MEDS: VANCOMYCIN 50 MG/ML 60 ML/BOTTLE PO SCH ×4 (04:16→22:34)
[2020-06-06 05:47] LABS: Basophils % 0.2 % (0.0-0.8); Eosinophils % 0.1 % (0.00-10.9); Hematocrit 23.8 VOL% (35.7-47.0); Hemoglobin 7.2 GM/DL (12.0-16.0); Immature Granulocytes Absolute 0.43 #; Lymphocytes # 0.4 10*3/uL (1.4-4.0); Mean Corpuscular HGB Conc 30.3 GM/DL (32-36); Monocytes % 3.1 % (1.7-12.7); Neutrophils % 92.6 % (38.7-73.9); Platelet Count 181 T/CUMM (130-400); Red Blood Count 2.31 MC/CUMM (3.8-5.5); Red Cell Distribution Width 15.1 % (9.3-17.3); White Blood Count 21.3 T/CUMM (4-12)
[2020-06-06] MEDS: LEVOTHYROXINE 100 MCG VIAL IV SCH (06:04)
[2020-06-06 06:14] LABS: Band Neutrophils 1 % (0-10); Burr Cells Slight; Eosinophils 1 % (0-10); Hypochromasia 2+; Lymphocytes 2 % (20-55); Ovalocytes Slight; Platelet Estimate Adequate; Segmented Neutrophils 93 % (50-85); Total Cells Counted 100
[2020-06-06 06:15] LABS: Macrocytosis Slight
[2020-06-06 06:27] LABS: Alanine Aminotransferase < 6 U/L (13-56); Albumin 1.7 G/DL (3.4-5.0); Alkaline Phosphatase 105 U/L (45-117); Aspartate Amino Transferase 12 U/L (0-37); Blood Urea Nitrogen 53 MG/DL (7-18); Calcium 7.9 MG/DL (8.5-10.1); Estimated Glom Filtration Rate 4 ML/MIN; Glucose 71 MG/DL (74-106)
[2020-06-06] MEDS: PIPERACILLIN/TAZOBACTAM 3,375 MG in SODIUM CHLORIDE 0.9% 100 ML IV SCH ×2 (14:00→22:35)
[2020-06-06] MEDS: MEGESTROL 400 MG/10 ML UDCUP PO SCH (14:00)
[2020-06-06] MEDS: FERROUS SULFATE 325 MG TABLET PO SCH ×2 (14:00→22:34)
[2020-06-06] MEDS ORDERED: VANCOMYCIN INJ 500 MG in SODIUM CHLORIDE 0.9% 100 ML IV PRN (17:00)
[2020-06-06] MEDS: AZITHROMYCIN INJ 500 MG in SODIUM CHLORIDE 0.9% 250 ML IV SCH (19:09)
[2020-06-06] MEDS: ENOXAPARIN 30 MG/0.3 ML SYRINGE SUBCUT SCH (22:34)
[2020-06-06] MEDS: SIMVASTATIN 20 MG TABLET PO SCH (22:34)
[2020-06-07] MEDS: INSULIN LISPRO 100 UNIT/ML SUBCUT SCH ×4 (00:26→18:00)
[2020-06-07] MEDS: VANCOMYCIN 50 MG/ML 60 ML/BOTTLE PO SCH ×5 (05:21→22:32)
[2020-06-07 05:28] LABS: Basophils % 0.2 % (0.0-0.8); Eosinophils % 0.1 % (0.00-10.9); Hematocrit 25.4 VOL% (35.7-47.0); Hemoglobin 7.7 GM/DL (12.0-16.0); Immature Granulocytes Absolute 0.85 #; Lymphocytes # 0.4 10*3/uL (1.4-4.0); Lymphocytes % 2.3 % (21.3-54.2); Mean Corpuscular HGB Conc 30.3 GM/DL (32-36); Mean Corpuscular Volume 103.7 FL (87-102); Mean Platelet Volume 10.1 FL (9.6-12.0); Monocytes % 4.5 % (1.7-12.7); Neutrophils % 87.9 % (38.7-73.9); Platelet Count 160 T/CUMM (130-400); Red Blood Count 2.45 MC/CUMM (3.8-5.5); Red Cell Distribution Width 15.1 % (9.3-17.3); White Blood Count 16.9 T/CUMM (4-12)
[2020-06-07 05:55] LABS: Band Neutrophils 2 % (0-10); Eosinophils 2 % (0-10); Hypochromasia Slight; Lymphocytes 1 % (20-55); Macrocytosis Slight; Platelet Estimate Normal; Segmented Neutrophils 93 % (50-85); Total Cells Counted 100
[2020-06-07] MEDS: LEVOTHYROXINE 100 MCG VIAL IV SCH (06:02)
[2020-06-07 06:05] LABS: Alanine Aminotransferase < 9 U/L (13-56); Albumin 1.6 G/DL (3.4-5.0); Alkaline Phosphatase 108 U/L (45-117); Aspartate Amino Transferase 13 U/L (0-37); Blood Urea Nitrogen 32 MG/DL (7-18); Estimated Glom Filtration Rate 9 ML/MIN; Glucose 64 MG/DL (74-106); Osmolality,Calculated 274.1 MOS/KG (273-304); Total Protein 7.2 G/DL (6.4-8.3)
[2020-06-07] MEDS: SODIUM CHLORIDE 0.9% 1,000 ML IV SCH ×3 (08:22→10:38)
[2020-06-07] MEDS: PIPERACILLIN/TAZOBACTAM 3,375 MG in SODIUM CHLORIDE 0.9% 100 ML IV SCH ×2 (08:50→20:48)
[2020-06-07] MEDS: FERROUS SULFATE 325 MG TABLET PO SCH ×2 (08:51→20:45)
[2020-06-07] MEDS: MEGESTROL 400 MG/10 ML UDCUP PO SCH (08:51)
[2020-06-07] MEDS ORDERED: VANCOMYCIN INJ 500 MG in SODIUM CHLORIDE 0.9% 100 ML IV ONE (09:00)
[2020-06-07] MEDS: AZITHROMYCIN INJ 500 MG in SODIUM CHLORIDE 0.9% 250 ML IV SCH (18:00)
[2020-06-07] MEDS: SIMVASTATIN 20 MG TABLET PO SCH (20:45)
[2020-06-07] MEDS: ENOXAPARIN 30 MG/0.3 ML SYRINGE SUBCUT SCH ×2 (20:45→22:32)
[2020-06-07 21:53] VITALS: BP 120/71
== END 2020-06-07 21:30 ==
LOC: N.3E 20:53 → INTOOBSV 20:53 → SUATTDRO 20:53
PROVIDERS: ADMIT Internal Medicine; ATTEND Internal Medicine

== ENCOUNTER 2020-06-08 19:45 | Inpatient (IN) ==
[2020-06-08] MEDS ORDERED: DEXTROSE 50% 25 GM/50 ML VIAL IV PRN (22:41)
[2020-06-08] MEDS ORDERED: GLUCAGON 1 MG VIAL IM PRN (22:41)
[2020-06-08] MEDS ORDERED: ACETAMINOPHEN 325 MG TABLET PO PRN (22:41)
[2020-06-08] MEDS ORDERED: ONDANSETRON 4 MG/2 ML VIAL IV PRN (22:41)
[2020-06-08] MEDS ORDERED: VANCOMYCIN INJ 500 MG in SODIUM CHLORIDE 0.9% 100 ML IV PRN (23:39)
[2020-06-08 23:40] LABS: HDL Cholesterol < 10 MG/DL (40-60); Triglycerides 113 MG/DL (2-150); VLDL CHOLESTEROL 22.6 MG/DL
[2020-06-09] MEDS ORDERED: VANCOMYCIN 50 MG/ML 60 ML/BOTTLE PO SCH
[2020-06-09] MEDS ORDERED: VANCOMYCIN INJ 1,000 MG in SODIUM CHLORIDE 0.9% 250 ML IV ONE
[2020-06-09] MEDS: SODIUM CHLOR 0.45% KCL 20 MEQ 20 MEQ/1,000 ML BAG IV SCH ×2 (00:57→09:50)
[2020-06-09 04:23] LABS: Basophils % 0.2 % (0.0-0.8); Eosinophils % 0.1 % (0.00-10.9); Hemoglobin 7.4 GM/DL (12.0-16.0); Immature Granulocytes % 2.1 %; Immature Granulocytes Absolute 0.27 #; Lymphocytes # 0.5 10*3/uL (1.4-4.0); Lymphocytes % 4.3 % (21.3-54.2); Mean Corpuscular HGB Conc 30.8 GM/DL (32-36); Mean Corpuscular Volume 101.3 FL (87-102); Mean Platelet Volume 10.6 FL (9.6-12.0); Monocytes % 6.1 % (1.7-12.7); Neutrophils % 87.2 % (38.7-73.9); Platelet Count 124 T/CUMM (130-400); Red Blood Count 2.37 MC/CUMM (3.8-5.5); Red Cell Distribution Width 15.6 % (9.3-17.3); White Blood Count 12.7 T/CUMM (4-12)
[2020-06-09 04:36] LABS: Calcium 8.4 MG/DL (8.5-10.1); Osmolality,Calculated 275.2 MOS/KG (273-304)
[2020-06-09 04:53] LABS: % Iron Saturation 19.1 % (18-50); Ferritin 3761.3 ng/ml (8-252)
[2020-06-09] MEDS: PIPERACILLIN/TAZOBACTAM 3,375 MG in SODIUM CHLORIDE 0.9% 100 ML IV SCH ×2 (05:25→13:46)
[2020-06-09 05:32] LABS: Folate 3.3 NG/ML (5.4-24.0)
[2020-06-09] MEDS: LEVOTHYROXINE 100 MCG VIAL IV SCH (06:32)
[2020-06-09 07:22] LABS: Lymphocytes 4 % (20-55); Segmented Neutrophils 90 % (50-85); Total Cells Counted 100
[2020-06-09 07:24] LABS: Macrocytosis Slight; Polychromasia Slight
[2020-06-09 07:25] LABS: Anisocytosis Slight; Platelet Estimate Normal
[2020-06-09] MEDS: INSULIN LISPRO 100 UNIT/ML SUBCUT SCH ×4 (08:31→20:35)
[2020-06-09] MEDS: PANTOPRAZOLE 40 MG TABLET PO SCH (09:51)
[2020-06-09] MEDS: HEPARIN 5,000 UNIT/1 ML VIAL SUBCUT SCH ×2 (14:38→20:30)
[2020-06-09] MEDS ORDERED: EPOETIN ALFA-EPBX 10,000 UNIT/ML VIAL IV PRN (16:06)
[2020-06-09 16:33] LABS: Albumin 1.9 G/DL (3.4-5.0); Bilirubin,Direct 0.35 MG/DL (0.0-0.20); Bilirubin,Indirect 0.4 MG/DL (0.0-1.0); Bilirubin,Total 0.7 MG/DL (0.2-1.0); Total Protein 7.4 G/DL (6.4-8.3)
[2020-06-10] MEDS: PIPERACILLIN/TAZOBACTAM 3,375 MG in SODIUM CHLORIDE 0.9% 100 ML IV SCH ×2 (01:55→14:48)
[2020-06-10] MEDS: HEPARIN 5,000 UNIT/1 ML VIAL SUBCUT SCH ×3 (04:11→20:46)
[2020-06-10] MEDS: LEVOTHYROXINE 100 MCG VIAL IV SCH (06:15)
[2020-06-10 06:24] LABS: Basophils % 0.1 % (0.0-0.8); Eosinophils % 0.1 % (0.00-10.9); Hematocrit 23.2 VOL% (35.7-47.0); Hemoglobin 7.3 GM/DL (12.0-16.0); Immature Granulocytes % 1.2 %; Immature Granulocytes Absolute 0.18 #; Lymphocytes # 0.8 10*3/uL (1.4-4.0); Mean Corpuscular HGB Conc 31.5 GM/DL (32-36); Mean Corpuscular Volume 99.1 FL (87-102); Mean Platelet Volume 10.6 FL (9.6-12.0); Monocytes % 6.2 % (1.7-12.7); NRBC # 0.02 10*3/uL; Neutrophils % 87.4 % (38.7-73.9); Platelet Count 111 T/CUMM (130-400); Red Blood Count 2.34 MC/CUMM (3.8-5.5); Red Cell Distribution Width 15.9 % (9.3-17.3); White Blood Count 15.5 T/CUMM (4-12)
[2020-06-10 06:49] LABS: Calcium 7.4 MG/DL (8.5-10.1); Osmolality,Calculated 289.4 MOS/KG (273-304)
[2020-06-10 07:03] LABS: Alanine Aminotransferase < 9 U/L (13-56); Albumin 1.4 G/DL (3.4-5.0); Alkaline Phosphatase 122 U/L (45-117); Aspartate Amino Transferase 15 U/L (0-37); Total Protein 6.7 G/DL (6.4-8.3)
[2020-06-10 11:23] LABS: Band Neutrophils 5 % (0-10); Lymphocytes 3 % (20-55); Polychromasia Slight; Segmented Neutrophils 87 % (50-85); Total Cells Counted 100
[2020-06-10 11:24] LABS: Acanthocytes Few; Atypical Lymphocytes Few; Burr Cells Few; Hypochromasia 2+; Platelet Estimate Adequate
[2020-06-10] MEDS: INSULIN LISPRO 100 UNIT/ML SUBCUT SCH ×4 (12:24→20:46)
[2020-06-10] MEDS: PANTOPRAZOLE 40 MG TABLET PO SCH (14:43)
[2020-06-11] MEDS: PIPERACILLIN/TAZOBACTAM 3,375 MG in SODIUM CHLORIDE 0.9% 100 ML IV SCH ×2 (02:04→16:30)
[2020-06-11] MEDS: HEPARIN 5,000 UNIT/1 ML VIAL SUBCUT SCH ×3 (04:01→20:31)
[2020-06-11 05:42] LABS: Basophils % 0.2 % (0.0-0.8); Eosinophils # 0.1 10*3/uL (0.0-0.87); Eosinophils % 0.5 % (0.00-10.9); Hemoglobin 7.6 GM/DL (12.0-16.0); Immature Granulocytes % 0.6 %; Immature Granulocytes Absolute 0.09 #; Lymphocytes # 0.8 10*3/uL (1.4-4.0); Lymphocytes % 5.4 % (21.3-54.2); Mean Corpuscular HGB Conc 31.7 GM/DL (32-36); Mean Corpuscular Volume 97.6 FL (87-102); Mean Platelet Volume 10.9 FL (9.6-12.0); Monocytes % 5.4 % (1.7-12.7); NRBC # 0.02 10*3/uL; Neutrophils % 87.9 % (38.7-73.9); Platelet Count 123 T/CUMM (130-400); Red Blood Count 2.46 MC/CUMM (3.8-5.5); Red Cell Distribution Width 15.9 % (9.3-17.3)
[2020-06-11] MEDS: LEVOTHYROXINE 100 MCG VIAL IV SCH (05:50)
[2020-06-11 06:15] LABS: Band Neutrophils 1 % (0-10); Hypochromasia 1+; Lymphocytes 8 % (20-55); Ovalocytes Slight; Platelet Estimate Decreased; Segmented Neutrophils 87 % (50-85); Total Cells Counted 100
[2020-06-11 06:16] LABS: INR 1.2; Microcytosis Slight; PT Patient Result 12.9 SECS (9.8-11.9)
[2020-06-11 06:20] LABS: Albumin 1.4 G/DL (3.4-5.0); Total Protein 6.5 G/DL (6.4-8.3)
[2020-06-11 06:25] LABS: Calcium 7.9 MG/DL (8.5-10.1); Osmolality,Calculated 289.5 MOS/KG (273-304)
[2020-06-11] MEDS: INSULIN LISPRO 100 UNIT/ML SUBCUT SCH ×4 (08:50→21:35)
[2020-06-11] MEDS: PANTOPRAZOLE 40 MG TABLET PO SCH (08:59)
[2020-06-12] MEDS: PIPERACILLIN/TAZOBACTAM 3,375 MG in SODIUM CHLORIDE 0.9% 100 ML IV SCH ×2 (02:11→16:41)
[2020-06-12] MEDS: HEPARIN 5,000 UNIT/1 ML VIAL SUBCUT SCH ×3 (04:19→21:17)
[2020-06-12] MEDS: LEVOTHYROXINE 100 MCG VIAL IV SCH (06:01)
[2020-06-12] MEDS: INSULIN LISPRO 100 UNIT/ML SUBCUT SCH ×4 (08:38→21:20)
[2020-06-12] MEDS: PANTOPRAZOLE 40 MG TABLET PO SCH ×2 (13:22→17:59)
[2020-06-13] MEDS: PIPERACILLIN/TAZOBACTAM 3,375 MG in SODIUM CHLORIDE 0.9% 100 ML IV SCH (02:40)
[2020-06-13] MEDS: LEVOTHYROXINE 100 MCG VIAL IV SCH (05:41)
[2020-06-13] MEDS: HEPARIN 5,000 UNIT/1 ML VIAL SUBCUT SCH ×2 (05:41→15:31)
[2020-06-13 06:34] LABS: Basophils % 0.3 % (0.0-0.8); Eosinophils # 0.1 10*3/uL (0.0-0.87); Eosinophils % 0.4 % (0.00-10.9); Hematocrit 24.1 VOL% (35.7-47.0); Hemoglobin 7.6 GM/DL (12.0-16.0); Immature Granulocytes Absolute 0.11 #; Lymphocytes # 0.9 10*3/uL (1.4-4.0); Lymphocytes % 7.9 % (21.3-54.2); Mean Corpuscular HGB Conc 31.5 GM/DL (32-36); Mean Corpuscular Volume 98.8 FL (87-102); Mean Platelet Volume 10.7 FL (9.6-12.0); Monocytes % 6.3 % (1.7-12.7); Neutrophils % 84.1 % (38.7-73.9); Platelet Count 137 T/CUMM (130-400); Red Blood Count 2.44 MC/CUMM (3.8-5.5); Red Cell Distribution Width 16.3 % (9.3-17.3); White Blood Count 11.4 T/CUMM (4-12)
[2020-06-13 06:53] LABS: Eosinophils 1 % (0-10); Hypochromasia 2+; Lymphocytes 6 % (20-55); Microcytosis Slight; Nucleated Red Blood Cells 1 (0-5); Ovalocytes Slight; Platelet Estimate Normal; Segmented Neutrophils 89 % (50-85); Total Cells Counted 100
[2020-06-13 07:00] LABS: Calcium 7.9 MG/DL (8.5-10.1); Osmolality,Calculated 282.5 MOS/KG (273-304)
[2020-06-13] MEDS: INSULIN LISPRO 100 UNIT/ML SUBCUT SCH ×2 (09:00→12:47)
[2020-06-13] MEDS: PANTOPRAZOLE 40 MG TABLET PO SCH (15:31)
[2020-06-13 16:18] VITALS: BP 147/63
== END 2020-06-13 18:15 | disposition home or self-care (01) | DRG 444 ==
LOC: N.TELEN → SUATTDRO 21:56
PROVIDERS: ADMIT Internal Medicine; ATTEND Internal Medicine

== ENCOUNTER 2020-06-29 18:30 | Inpatient (IN) ==
[2020-06-29 19:39] LABS: Basophils % 0.3 % (0.0-0.8); Eosinophils % 0.3 % (0.00-10.9); Hematocrit 20.6 VOL% (35.7-47.0); Immature Granulocytes % 0.7 %; Immature Granulocytes Absolute 0.04 #; Lymphocytes # 0.7 10*3/uL (1.4-4.0); Lymphocytes % 11.2 % (21.3-54.2); Mean Corpuscular HGB Conc 31.1 GM/DL (32-36); Mean Corpuscular Volume 96.7 FL (87-102); Mean Platelet Volume 10.8 FL (9.6-12.0); Monocytes % 8.8 % (1.7-12.7); Neutrophils % 78.7 % (38.7-73.9); Platelet Count 127 T/CUMM (130-400); Red Blood Count 2.13 MC/CUMM (3.8-5.5); Red Cell Distribution Width 18.5 % (9.3-17.3)
[2020-06-29 19:41] LABS: Hemoglobin 6.4 GM/DL (12.0-16.0)
[2020-06-29 20:02] LABS: Albumin 1.7 G/DL (3.4-5.0); Bilirubin,Total 0.6 MG/DL (0.2-1.0); Calcium 8.1 MG/DL (8.5-10.1); Osmolality,Calculated 277.5 MOS/KG (273-304); Total Protein 7.6 G/DL (6.4-8.3)
[2020-06-29] MEDS ORDERED: GLUCAGON 1 MG VIAL IM PRN (21:42)
[2020-06-29] MEDS ORDERED: ACETAMINOPHEN 325 MG TABLET PO PRN (21:47)
[2020-06-29] MEDS ORDERED: ONDANSETRON 4 MG/2 ML VIAL IV PRN (21:47)
[2020-06-29] MEDS ORDERED: MORPHINE 4 MG/1 ML VIAL IV PRN (21:47)
[2020-06-29] MEDS ORDERED: NICOTINE 21 MG/24 HR PATCH TRANSDERM PRN (21:47)
[2020-06-29] MEDS ORDERED: guaiFENesin/DM ER 600-30 MG TABLET PO PRN (21:47)
[2020-06-29] MEDS ORDERED: diphenhydrAMINE CAP 25 MG CAPSULE PO PRN (21:47)
[2020-06-30 03:39] LABS: Basophils % 0.5 % (0.0-0.8); Eosinophils % 0.5 % (0.00-10.9); Hematocrit 18.8 VOL% (35.7-47.0); Immature Granulocytes % 0.3 %; Immature Granulocytes Absolute 0.02 #; Lymphocytes # 0.8 10*3/uL (1.4-4.0); Lymphocytes % 13.7 % (21.3-54.2); Mean Corpuscular HGB Conc 30.9 GM/DL (32-36); Mean Corpuscular Volume 100.5 FL (87-102); Mean Platelet Volume 10.6 FL (9.6-12.0); Monocytes % 9.4 % (1.7-12.7); Neutrophils % 75.6 % (38.7-73.9); Platelet Count 129 T/CUMM (130-400); Red Blood Count 1.87 MC/CUMM (3.8-5.5); Red Cell Distribution Width 18.4 % (9.3-17.3); White Blood Count 6.1 T/CUMM (4-12)
[2020-06-30 03:41] LABS: Hemoglobin 5.8 GM/DL (12.0-16.0)
[2020-06-30] MEDS ORDERED: SODIUM CHLORIDE 0.9% 1,000 ML IV PRN (03:47)
[2020-06-30 05:09] LABS: Anisocytosis 1+; Hypochromasia 1+; Microcytosis 1+
[2020-06-30 05:10] LABS: Platelet Estimate Adequate; Polychromasia Slight
[2020-06-30 11:34] LABS: Hematocrit 25.7 VOL% (35.7-47.0)
[2020-06-30 11:36] LABS: Hemoglobin 8.3 GM/DL (12.0-16.0)
[2020-06-30 12:59] LABS: Basophils % 0.7 % (0.0-0.8); Eosinophils % 0.7 % (0.00-10.9); Hematocrit 27.6 VOL% (35.7-47.0); Hemoglobin 8.4 GM/DL (12.0-16.0); Immature Granulocytes % 0.7 %; Immature Granulocytes Absolute 0.04 #; Lymphocytes # 0.8 10*3/uL (1.4-4.0); Lymphocytes % 13.3 % (21.3-54.2); Mean Corpuscular HGB Conc 30.4 GM/DL (32-36); Mean Corpuscular Volume 98.6 FL (87-102); Mean Platelet Volume 10.7 FL (9.6-12.0); Monocytes % 9.7 % (1.7-12.7); NRBC # 0.03 10*3/uL; Neutrophils % 74.9 % (38.7-73.9); Platelet Count 123 T/CUMM (130-400); Red Cell Distribution Width 17.6 % (9.3-17.3)
[2020-06-30] MEDS: PANTOPRAZOLE 40 MG VIAL IV SCH (21:53)
[2020-07-01 05:51] LABS: Basophils % 0.5 % (0.0-0.8); Eosinophils # 0.1 10*3/uL (0.0-0.87); Hematocrit 22.9 VOL% (35.7-47.0); Hemoglobin 7.3 GM/DL (12.0-16.0); Immature Granulocytes % 0.5 %; Immature Granulocytes Absolute 0.03 #; Lymphocytes % 16.9 % (21.3-54.2); Mean Corpuscular HGB Conc 31.9 GM/DL (32-36); Mean Corpuscular Volume 97.9 FL (87-102); Mean Platelet Volume 10.7 FL (9.6-12.0); Monocytes % 10.3 % (1.7-12.7); NRBC # 0.02 10*3/uL; Neutrophils % 70.8 % (38.7-73.9); Platelet Count 127 T/CUMM (130-400); Red Blood Count 2.34 MC/CUMM (3.8-5.5); White Blood Count 5.9 T/CUMM (4-12)
[2020-07-01 06:18] LABS: Hypochromasia Slight
[2020-07-01 06:19] LABS: Platelet Estimate Normal
[2020-07-01] MEDS ORDERED: SODIUM CHLORIDE 0.9% 1,000 ML IV PRN (10:16)
[2020-07-01] MEDS: PANTOPRAZOLE 40 MG TABLET PO SCH ×2 (12:08→21:23)
[2020-07-01] MEDS: PANTOPRAZOLE 40 MG VIAL IV SCH (12:31)
[2020-07-01 19:30] LABS: Hemoglobin 8.7 GM/DL (12.0-16.0)
[2020-07-02 07:24] LABS: Basophils # 0.1 10*3/uL (0.0-0.2); Basophils % 0.8 % (0.0-0.8); Eosinophils # 0.1 10*3/uL (0.0-0.87); Eosinophils % 0.9 % (0.00-10.9); Hemoglobin 8.2 GM/DL (12.0-16.0); Immature Granulocytes % 0.3 %; Immature Granulocytes Absolute 0.02 #; Lymphocytes # 1.1 10*3/uL (1.4-4.0); Lymphocytes % 16.6 % (21.3-54.2); Mean Corpuscular HGB Conc 31.5 GM/DL (32-36); Mean Corpuscular Volume 96.3 FL (87-102); Mean Platelet Volume 10.6 FL (9.6-12.0); Monocytes % 6.8 % (1.7-12.7); Neutrophils % 74.6 % (38.7-73.9); Platelet Count 129 T/CUMM (130-400); Red Cell Distribution Width 18.6 % (9.3-17.3); White Blood Count 6.5 T/CUMM (4-12)
[2020-07-02 07:36] LABS: Calcium 7.7 MG/DL (8.5-10.1); Osmolality,Calculated 288.5 MOS/KG (273-304)
[2020-07-02 07:57] LABS: Anisocytosis 2+; Platelet Estimate Adequate; Polychromasia Slight
[2020-07-02 07:58] LABS: Macrocytosis Slight; Poikilocytosis Slight
[2020-07-02] MEDS: SODIUM CHLORIDE 0.9% 1,000 ML IV SCH (08:17)
[2020-07-02] MEDS ORDERED: ePHEDrine 50 MG/ML VIAL ONE (08:38)
[2020-07-02] MEDS ORDERED: LIDOCAINE 2% 5 ML VIAL ONE (09:00)
[2020-07-02] MEDS ORDERED: EPINEPHrine 1 MG/ML VIAL ONE (09:00)
[2020-07-02] MEDS ORDERED: PHENYLEPHRINE 1 MG/10 ML SYRINGE IV ONE (09:00)
[2020-07-02] MEDS ORDERED: propofoL 200 MG/20 ML VIAL IV ONE (09:00)
[2020-07-02] MEDS ORDERED: GLYCOPYRROLATE 0.4 MG/2 ML VIAL ONE (09:00)
[2020-07-02] MEDS: PANTOPRAZOLE 40 MG TABLET PO SCH ×2 (09:13→23:51)
[2020-07-02] MEDS: BISACODYL 5 MG TABLET NG SCH ×2 (10:11→16:47)
[2020-07-02] MEDS: DEXTROSE 50% 25 GM/50 ML VIAL IV PRN (11:04)
[2020-07-02 13:57] LABS: Hemoglobin 7.9 GM/DL (12.0-16.0)
[2020-07-02] MEDS ORDERED: POLYETHYLENE GLYCOL 3350/ELECTROLYTES 4,000 ML BOTTLE NG ONE (14:00)
[2020-07-02] MEDS: METOCLOPRAMIDE 10 MG/2 ML VIAL IV PRN ×2 (15:34→21:10)
[2020-07-02 20:18] LABS: Hemoglobin 7.9 GM/DL (12.0-16.0)
[2020-07-02] MEDS ORDERED: MAGNESIUM CITRATE 300 ML BOTTLE NG ONE (21:00)
[2020-07-02] MEDS: PANTOPRAZOLE 40 MG VIAL IV SCH (21:22)
[2020-07-03] MEDS: BISACODYL 5 MG TABLET NG SCH (00:04)
[2020-07-03 01:53] LABS: Hematocrit 26.5 VOL% (35.7-47.0); Hemoglobin 8.1 GM/DL (12.0-16.0)
[2020-07-03 02:11] LABS: Calcium 7.9 MG/DL (8.5-10.1)
[2020-07-03 03:38] LABS: Basophils # 0.1 10*3/uL (0.0-0.2); Basophils % 0.3 % (0.0-0.8); Eosinophils % 0.2 % (0.00-10.9); Hematocrit 24.9 VOL% (35.7-47.0); Hemoglobin 7.8 GM/DL (12.0-16.0); Immature Granulocytes % 0.4 %; Immature Granulocytes Absolute 0.09 #; Lymphocytes # 0.5 10*3/uL (1.4-4.0); Lymphocytes % 2.6 % (21.3-54.2); Mean Corpuscular HGB Conc 31.3 GM/DL (32-36); Mean Platelet Volume 10.1 FL (9.6-12.0); Monocytes % 3.8 % (1.7-12.7); Neutrophils % 92.7 % (38.7-73.9); Platelet Count 151 T/CUMM (130-400); Red Blood Count 2.49 MC/CUMM (3.8-5.5); Red Cell Distribution Width 19.6 % (9.3-17.3); White Blood Count 20.6 T/CUMM (4-12)
[2020-07-03 04:07] LABS: Eosinophils 1 % (0-10); Hypochromasia 2+; Lymphocytes 2 % (20-55); Ovalocytes Slight; Platelet Estimate Adequate; Segmented Neutrophils 91 % (50-85); Total Cells Counted 100
[2020-07-03 04:08] LABS: Macrocytosis Slight; Polychromasia Slight
[2020-07-03] MEDS: METOCLOPRAMIDE 10 MG/2 ML VIAL IV PRN (04:08)
[2020-07-03 07:19] LABS: Hematocrit 22.8 VOL% (35.7-47.0); Hemoglobin 7.1 GM/DL (12.0-16.0)
[2020-07-03] MEDS: PANTOPRAZOLE 40 MG VIAL IV SCH ×2 (08:04→20:06)
[2020-07-03] MEDS ORDERED: SODIUM CHLORIDE 0.9% 1,000 ML IV PRN (08:49)
[2020-07-03] MEDS ORDERED: ETOMIDATE 20 MG/10 ML VIAL IV ONE (09:00)
[2020-07-03] MEDS ORDERED: LIDOCAINE 2% 5 ML VIAL ONE ×2 (09:00→09:35)
[2020-07-03] MEDS ORDERED: ETOMIDATE 40 MG/20 ML VIAL IV ONE (09:35)
[2020-07-03] MEDS: SODIUM CHLORIDE 0.9% 1,000 ML IV SCH (09:53)
[2020-07-03] MEDS: DEXTROSE 50% 25 GM/50 ML VIAL IV PRN (11:16)
[2020-07-04 03:57] LABS: Basophils % 0.2 % (0.0-0.8); Eosinophils # 0.1 10*3/uL (0.0-0.87); Hematocrit 20.6 VOL% (35.7-47.0); Immature Granulocytes % 0.4 %; Immature Granulocytes Absolute 0.05 #; Lymphocytes # 0.8 10*3/uL (1.4-4.0); Lymphocytes % 6.5 % (21.3-54.2); Mean Corpuscular HGB Conc 30.1 GM/DL (32-36); Mean Platelet Volume 10.2 FL (9.6-12.0); Monocytes % 3.9 % (1.7-12.7); Platelet Count 136 T/CUMM (130-400); Red Blood Count 2.02 MC/CUMM (3.8-5.5); Red Cell Distribution Width 20.6 % (9.3-17.3); White Blood Count 12.2 T/CUMM (4-12)
[2020-07-04 04:11] LABS: Calcium 7.4 MG/DL (8.5-10.1); Osmolality,Calculated 276.7 MOS/KG (273-304)
[2020-07-04 04:18] LABS: Hemoglobin 6.2 GM/DL (12.0-16.0)
[2020-07-04 04:23] LABS: Hypochromasia 2+; Macrocytosis Slight; Platelet Estimate Adequate
[2020-07-04 04:24] LABS: Polychromasia Slight
[2020-07-04] MEDS: PANTOPRAZOLE 40 MG VIAL IV SCH ×2 (09:20→20:45)
[2020-07-04] MEDS: SODIUM CHLORIDE 0.9% 1,000 ML IV SCH (10:39)
[2020-07-04] MEDS: PIPERACILLIN/TAZOBACTAM 3,375 MG in SODIUM CHLORIDE 0.9% 100 ML IV SCH (18:00)
[2020-07-05] MEDS: PIPERACILLIN/TAZOBACTAM 3,375 MG in SODIUM CHLORIDE 0.9% 100 ML IV SCH ×2 (04:29→16:39)
[2020-07-05 04:43] LABS: Basophils % 0.2 % (0.0-0.8); Eosinophils # 0.1 10*3/uL (0.0-0.87); Eosinophils % 0.3 % (0.00-10.9); Hematocrit 27.2 VOL% (35.7-47.0); Immature Granulocytes % 0.6 %; Immature Granulocytes Absolute 0.11 #; Lymphocytes # 0.7 10*3/uL (1.4-4.0); Lymphocytes % 4.1 % (21.3-54.2); Mean Corpuscular HGB Conc 33.1 GM/DL (32-36); Mean Corpuscular Volume 95.4 FL (87-102); Mean Platelet Volume 10.1 FL (9.6-12.0); Monocytes % 3.4 % (1.7-12.7); Neutrophils % 91.4 % (38.7-73.9); Platelet Count 123 T/CUMM (130-400)
[2020-07-05 04:50] LABS: White Blood Count 16.9 T/CUMM (4-12)
[2020-07-05 04:51] LABS: Red Blood Count 2.85 MC/CUMM (3.8-5.5)
[2020-07-05 05:07] LABS: Calcium 7.5 MG/DL (8.5-10.1); Eosinophils 1 % (0-10); Hypochromasia 1+; Lymphocytes 4 % (20-55); Osmolality,Calculated 279.5 MOS/KG (273-304); Segmented Neutrophils 91 % (50-85); Total Cells Counted 100
[2020-07-05 05:08] LABS: Macrocytosis Slight; Polychromasia Slight
[2020-07-05] MEDS: SODIUM CHLORIDE 0.9% 1,000 ML IV SCH (09:31)
[2020-07-05] MEDS: PANTOPRAZOLE 40 MG VIAL IV SCH ×2 (09:57→20:30)
[2020-07-05 16:37] LABS: Hematocrit 25.8 VOL% (35.7-47.0); Hemoglobin 8.3 GM/DL (12.0-16.0)
[2020-07-05 20:22] LABS: Hematocrit 25.6 VOL% (35.7-47.0)
[2020-07-06 01:00] LABS: Hematocrit 24.3 VOL% (35.7-47.0); Hemoglobin 7.7 GM/DL (12.0-16.0)
[2020-07-06] MEDS: PIPERACILLIN/TAZOBACTAM 3,375 MG in SODIUM CHLORIDE 0.9% 100 ML IV SCH ×2 (04:58→15:46)
[2020-07-06 05:02] LABS: Basophils % 0.3 % (0.0-0.8); Eosinophils # 0.2 10*3/uL (0.0-0.87); Eosinophils % 2.1 % (0.00-10.9); Hematocrit 24.2 VOL% (35.7-47.0); Hemoglobin 7.6 GM/DL (12.0-16.0); Immature Granulocytes % 0.5 %; Immature Granulocytes Absolute 0.06 #; Lymphocytes # 0.8 10*3/uL (1.4-4.0); Lymphocytes % 7.5 % (21.3-54.2); Mean Corpuscular HGB Conc 31.4 GM/DL (32-36); Mean Corpuscular Volume 99.2 FL (87-102); Mean Platelet Volume 10.2 FL (9.6-12.0); Monocytes % 4.4 % (1.7-12.7); Neutrophils % 85.2 % (38.7-73.9); Platelet Count 115 T/CUMM (130-400); Red Blood Count 2.44 MC/CUMM (3.8-5.5); Red Cell Distribution Width 19.8 % (9.3-17.3); White Blood Count 11.1 T/CUMM (4-12)
[2020-07-06 05:22] LABS: Calcium 7.5 MG/DL (8.5-10.1); Osmolality,Calculated 283.5 MOS/KG (273-304)
[2020-07-06 05:29] LABS: Eosinophils 2 % (0-10); Hypochromasia 2+; Lymphocytes 11 % (20-55); Platelet Estimate Decreased; Segmented Neutrophils 85 % (50-85); Total Cells Counted 100
[2020-07-06 05:30] LABS: Macrocytosis Slight
[2020-07-06] MEDS: PANTOPRAZOLE 40 MG VIAL IV SCH (09:08)
[2020-07-06] MEDS: SODIUM CHLORIDE 0.9% 1,000 ML IV SCH (09:08)
[2020-07-06 10:01] LABS: Hematocrit 24.6 VOL% (35.7-47.0); Hemoglobin 7.8 GM/DL (12.0-16.0)
[2020-07-06] MEDS: SEVELAMER CARBONATE 800 MG TABLET PO SCH ×2 (12:11→17:00)
[2020-07-07] MEDS: PANTOPRAZOLE 40 MG VIAL IV SCH ×3 (00:38→20:32)
[2020-07-07] MEDS: PIPERACILLIN/TAZOBACTAM 3,375 MG in SODIUM CHLORIDE 0.9% 100 ML IV SCH ×2 (04:25→16:30)
[2020-07-07 04:32] LABS: Basophils % 0.5 % (0.0-0.8); Eosinophils # 0.2 10*3/uL (0.0-0.87); Eosinophils % 2.6 % (0.00-10.9); Hematocrit 20.6 VOL% (35.7-47.0); Immature Granulocytes % 0.6 %; Immature Granulocytes Absolute 0.05 #; Lymphocytes # 0.9 10*3/uL (1.4-4.0); Lymphocytes % 10.4 % (21.3-54.2); Mean Corpuscular HGB Conc 31.1 GM/DL (32-36); Mean Corpuscular Volume 102.5 FL (87-102); Mean Platelet Volume 10.1 FL (9.6-12.0); Monocytes % 5.9 % (1.7-12.7); Platelet Count 122 T/CUMM (130-400); Red Blood Count 2.01 MC/CUMM (3.8-5.5); Red Cell Distribution Width 20.6 % (9.3-17.3); White Blood Count 8.2 T/CUMM (4-12)
[2020-07-07 04:45] LABS: Calcium 7.6 MG/DL (8.5-10.1); Osmolality,Calculated 279.5 MOS/KG (273-304)
[2020-07-07 05:08] LABS: Hemoglobin 6.4 GM/DL (12.0-16.0)
[2020-07-07] MEDS ORDERED: SODIUM CHLORIDE 0.9% 1,000 ML IV PRN (06:36)
[2020-07-07] MEDS: LEVOTHYROXINE 50 MCG TABLET PO SCH (08:43)
[2020-07-07] MEDS: SEVELAMER CARBONATE 800 MG TABLET PO SCH ×3 (08:43→17:19)
[2020-07-07 19:20] LABS: Hematocrit 26.1 VOL% (35.7-47.0)
[2020-07-07 19:22] LABS: Hemoglobin 8.1 GM/DL (12.0-16.0)
[2020-07-08] MEDS: PIPERACILLIN/TAZOBACTAM 3,375 MG in SODIUM CHLORIDE 0.9% 100 ML IV SCH ×2 (03:30→16:25)
[2020-07-08 03:55] LABS: Basophils % 0.5 % (0.0-0.8); Eosinophils # 0.2 10*3/uL (0.0-0.87); Eosinophils % 2.4 % (0.00-10.9); Hematocrit 24.1 VOL% (35.7-47.0); Hemoglobin 7.6 GM/DL (12.0-16.0); Immature Granulocytes % 0.5 %; Immature Granulocytes Absolute 0.04 #; Lymphocytes % 12.7 % (21.3-54.2); Mean Corpuscular HGB Conc 31.5 GM/DL (32-36); Mean Platelet Volume 10.3 FL (9.6-12.0); Monocytes % 6.5 % (1.7-12.7); NRBC # 0.02 10*3/uL; Neutrophils % 77.4 % (38.7-73.9); Platelet Count 118 T/CUMM (130-400); Red Blood Count 2.46 MC/CUMM (3.8-5.5); Red Cell Distribution Width 20.1 % (9.3-17.3); White Blood Count 8.2 T/CUMM (4-12)
[2020-07-08 04:19] LABS: Calcium 7.7 MG/DL (8.5-10.1); Osmolality,Calculated 286.5 MOS/KG (273-304)
[2020-07-08] MEDS: LEVOTHYROXINE 50 MCG TABLET PO SCH (06:12)
[2020-07-08] MEDS: DEXTROSE 50% 25 GM/50 ML VIAL IV PRN (07:49)
[2020-07-08] MEDS: SEVELAMER CARBONATE 800 MG TABLET PO SCH ×3 (07:49→16:47)
[2020-07-08] MEDS: PANTOPRAZOLE 40 MG VIAL IV SCH ×2 (08:02→23:07)
[2020-07-08] MEDS ORDERED: LACTULOSE 320 GM/480 ML BOTTLE RECTAL ONE (11:10)
[2020-07-08 11:25] LABS: Hypochromasia 2+; Schistocytes Few
[2020-07-08 11:26] LABS: Microcytosis 2+; Ovalocytes Few; Platelet Estimate Adequate
[2020-07-08] MEDS ORDERED: MAGNESIUM CITRATE 300 ML BOTTLE PO ONE (18:00)
[2020-07-09] MEDS: PIPERACILLIN/TAZOBACTAM 3,375 MG in SODIUM CHLORIDE 0.9% 100 ML IV SCH (04:06)
[2020-07-09] MEDS ORDERED: cefTRIAXone 1,000 MG VIAL IM ONE (04:30)
[2020-07-09 06:52] LABS: Basophils # 0.1 10*3/uL (0.0-0.2); Basophils % 0.9 % (0.0-0.8); Eosinophils # 0.2 10*3/uL (0.0-0.87); Eosinophils % 2.2 % (0.00-10.9); Hematocrit 21.1 VOL% (35.7-47.0); Hemoglobin 6.5 GM/DL (12.0-16.0); Immature Granulocytes % 0.4 %; Immature Granulocytes Absolute 0.03 #; Lymphocytes % 15.4 % (21.3-54.2); Mean Corpuscular HGB Conc 30.8 GM/DL (32-36); Mean Platelet Volume 9.9 FL (9.6-12.0); Monocytes % 6.4 % (1.7-12.7); Neutrophils % 74.7 % (38.7-73.9); Platelet Count 131 T/CUMM (130-400); Red Blood Count 2.11 MC/CUMM (3.8-5.5); Red Cell Distribution Width 21.1 % (9.3-17.3); White Blood Count 6.7 T/CUMM (4-12)
[2020-07-09 07:10] LABS: Calcium 7.9 MG/DL (8.5-10.1)
[2020-07-09] MEDS ORDERED: LACTATED RINGERS 1,000 ML IV SCH (07:30)
[2020-07-09] MEDS ORDERED: SODIUM CHLORIDE 0.9% 1,000 ML IV PRN (07:47)
[2020-07-09] MEDS: PANTOPRAZOLE 40 MG VIAL IV SCH ×2 (15:15→21:25)
[2020-07-09] MEDS: LEVOTHYROXINE 50 MCG TABLET PO SCH (15:17)
[2020-07-09] MEDS: SEVELAMER CARBONATE 800 MG TABLET PO SCH ×2 (15:18→18:20)
[2020-07-09] MEDS ORDERED: GLUCOSE GEL 15 GM TUBE PO PRN (15:41)
[2020-07-09] MEDS ORDERED: MAGNESIUM CITRATE 300 ML BOTTLE PO ONE (18:00)
[2020-07-09] MEDS: DEXTROSE 50% 25 GM/50 ML VIAL IV PRN (21:27)
[2020-07-10 05:53] LABS: Basophils # 0.1 10*3/uL (0.0-0.2); Basophils % 0.8 % (0.0-0.8); Eosinophils # 0.1 10*3/uL (0.0-0.87); Eosinophils % 1.8 % (0.00-10.9); Hematocrit 28.5 VOL% (35.7-47.0); Immature Granulocytes % 0.6 %; Immature Granulocytes Absolute 0.04 #; Lymphocytes # 1.3 10*3/uL (1.4-4.0); Lymphocytes % 20.2 % (21.3-54.2); Mean Corpuscular HGB Conc 31.6 GM/DL (32-36); Mean Platelet Volume 9.5 FL (9.6-12.0); Monocytes % 8.8 % (1.7-12.7); Neutrophils % 67.8 % (38.7-73.9); Platelet Count 154 T/CUMM (130-400); Red Blood Count 2.97 MC/CUMM (3.8-5.5); Red Cell Distribution Width 18.6 % (9.3-17.3); White Blood Count 6.6 T/CUMM (4-12)
[2020-07-10 06:14] LABS: Calcium 7.5 MG/DL (8.5-10.1); Osmolality,Calculated 281.7 MOS/KG (273-304)
[2020-07-10 06:17] LABS: Burr Cells Slight; Hypochromasia 1+; Ovalocytes Slight
[2020-07-10 06:18] LABS: Microcytosis 1+; Platelet Estimate Adequate
[2020-07-10] MEDS ORDERED: SODIUM CHLORIDE 0.9% 500 ML IV SCH (07:00)
[2020-07-10] MEDS: LEVOTHYROXINE 50 MCG TABLET PO SCH (07:00)
[2020-07-10] MEDS: DEXTROSE 50% 25 GM/50 ML VIAL IV PRN ×2 (07:12→16:13)
[2020-07-10] MEDS: SEVELAMER CARBONATE 800 MG TABLET PO SCH ×3 (07:47→16:43)
[2020-07-10] MEDS: PANTOPRAZOLE 40 MG VIAL IV SCH ×2 (08:12→20:04)
[2020-07-10] MEDS ORDERED: LIDOCAINE 2% 5 ML VIAL ONE (09:00)
[2020-07-10] MEDS ORDERED: ETOMIDATE 20 MG/10 ML VIAL IV ONE (09:00)
[2020-07-11] MEDS: LEVOTHYROXINE 50 MCG TABLET PO SCH (06:00)
[2020-07-11 08:27] LABS: Basophils # 0.1 10*3/uL (0.0-0.2); Basophils % 0.9 % (0.0-0.8); Eosinophils # 0.2 10*3/uL (0.0-0.87); Eosinophils % 3.9 % (0.00-10.9); Hematocrit 25.7 VOL% (35.7-47.0); Hemoglobin 8.1 GM/DL (12.0-16.0); Immature Granulocytes % 0.4 %; Immature Granulocytes Absolute 0.02 #; Lymphocytes # 1.3 10*3/uL (1.4-4.0); Lymphocytes % 23.5 % (21.3-54.2); Mean Corpuscular HGB Conc 31.5 GM/DL (32-36); Mean Corpuscular Volume 98.1 FL (87-102); Mean Platelet Volume 9.4 FL (9.6-12.0); Monocytes % 8.5 % (1.7-12.7); Neutrophils % 62.8 % (38.7-73.9); Platelet Count 171 T/CUMM (130-400); Red Blood Count 2.62 MC/CUMM (3.8-5.5); Red Cell Distribution Width 19.2 % (9.3-17.3); White Blood Count 5.4 T/CUMM (4-12)
[2020-07-11 08:38] LABS: Calcium 7.6 MG/DL (8.5-10.1); Osmolality,Calculated 287.5 MOS/KG (273-304)
[2020-07-11] MEDS: SEVELAMER CARBONATE 800 MG TABLET PO SCH ×4 (09:13→17:57)
[2020-07-11] MEDS: PANTOPRAZOLE 40 MG VIAL IV SCH ×2 (09:13→20:12)
[2020-07-11] MEDS: DEXTROSE 50% 25 GM/50 ML VIAL IV PRN (20:21)
[2020-07-12 05:50] LABS: Calcium 7.3 MG/DL (8.5-10.1); Osmolality,Calculated 280.4 MOS/KG (273-304)
[2020-07-12] MEDS: LEVOTHYROXINE 50 MCG TABLET PO SCH (06:31)
[2020-07-12 06:50] LABS: Basophils % 0.9 % (0.0-0.8); Eosinophils # 0.1 10*3/uL (0.0-0.87); Eosinophils % 3.1 % (0.00-10.9); Hematocrit 20.1 VOL% (35.7-47.0); Immature Granulocytes % 0.7 %; Immature Granulocytes Absolute 0.03 #; Lymphocytes % 21.8 % (21.3-54.2); Mean Corpuscular HGB Conc 31.3 GM/DL (32-36); Mean Corpuscular Volume 98.5 FL (87-102); Mean Platelet Volume 9.6 FL (9.6-12.0); Monocytes % 7.6 % (1.7-12.7); Neutrophils % 65.9 % (38.7-73.9); Platelet Count 159 T/CUMM (130-400); Red Cell Distribution Width 19.5 % (9.3-17.3); White Blood Count 4.5 T/CUMM (4-12)
[2020-07-12 06:57] LABS: Hemoglobin 6.3 GM/DL (12.0-16.0); Red Blood Count 2.04 MC/CUMM (3.8-5.5)
[2020-07-12 07:43] LABS: Hematocrit 19.1 VOL% (35.7-47.0)
[2020-07-12] MEDS ORDERED: SODIUM CHLORIDE 0.9% 1,000 ML IV PRN (07:48)
[2020-07-12 07:53] LABS: INR 2.6; PT Patient Result 26.6 SECS (9.8-11.9)
[2020-07-12] MEDS: SEVELAMER CARBONATE 800 MG TABLET PO SCH (08:49)
[2020-07-12] MEDS: PANTOPRAZOLE 40 MG VIAL IV SCH (08:50)
[2020-07-12] MEDS ORDERED: PHYTONADIONE 10 MG/1 ML AMP SUBCUT ONE (10:00)
[2020-07-12 15:33] VITALS: BP 141/58
== END 2020-07-12 18:25 | disposition hospice, inpatient (51) | DRG 377 ==
LOC: N.EDINP 18:30 → N.ED 18:30 → SUATTDRO 21:47 → N.3E 22:30 → SUATTDRO 06-30 13:38 → N.CC 07-02 09:33 → N.5E 07-08 17:25
PROVIDERS: ADMIT Internal Medicine Geriatric Medicine; ATTEND Internal Medicine